=== PATIENT | female | born 1980 | race Caucasian/White ===

== ENCOUNTER 2018-10-28 10:33 | Emergency (ER) | payer OTHER ==
[2018-10-28 11:08] VITALS: BP 156/65; PULSE 82; RESP 18; TEMP 98.1
--- NOTE | 2018-10-28 11:35 | ED ---
General Adult HPI - General Chief complaint: Psychiatric Symptoms Stated complaint: psych eval Time Seen by Provider: 10/28/18 11:13 Source: patient, RN notes reviewed Mode of arrival: ambulatory Limitations: no limitations - History of Present Illness Initial comments: Patient is a 38-year-old female presenting to the emergency room today with a chief complaint of increased depression. Patient does admit that she's been on Effexor for 2 years. Her dose was 150 mg. Up approximately one month ago decreased the dose to 75 mg. She states she began noticing symptoms right away but they have been increasing and becoming more significant over the last few days. She states that she has had some "fleeting" thoughts of hurting herself. She gives an example of yesterday she was putting a knife away and she briefly thought about using the knife. Patient states she has no intentions of hurting herself. Patient denies any homicidal thoughts or plans. Patient denies any other complaints. Currently at [place] for rehab for alcohol. Patient denies any recent fever, chills, shortness of breath, chest pain, back pain, abdominal pain, nausea or vomiting, numbness or tingling, headaches or visual changes, or any other complaints. - Related Data Home Medications Medication Instructions Recorded Confirmed Ibuprofen [Motrin Ib] 600 mg PO Q6H PRN 10/28/18 10/28/18 Multivitamin,Therapeutic [Thera] 1 tab PO DAILY 10/28/18 10/28/18 Propranolol HCl [Inderal Xl] 80 mg PO DAILY 10/28/18 10/28/18 Venlafaxine HCl ER [Effexor Xr] 75 mg PO DAILY 10/28/18 10/28/18 Allergies Allergy/AdvReac Type Severity Reaction Status Date / Time No Known Allergies Allergy Verified 10/28/18 12:05 Review of Systems ROS Statement: Those systems with pertinent positive or pertinent negative responses have been documented in the HPI. ROS Other: All systems not noted in ROS Statement are negative. Past Medical History Past Medical History: Hypertension History of Any Multi-Drug Resistant Organisms: None Reported Past Surgical History: No Surgical Hx Reported Past Psychological History: Anxiety, Depression, Panic Disorder Smoking Status: Former smoker Past Alcohol Use History: Abuse Past Drug Use History: None Reported General Exam - General Exam Comments Initial Comments: General: The patient is awake and alert, in no distress, and does not appear acutely ill. Eye: Pupils are equal, round and reactive to light, extra-ocular movements are intact. No nystagmus. There is normal conjunctiva bilaterally. No signs of icterus. Ears, nose, mouth and throat: There are moist mucous membranes and no oral lesions. Neck: The neck is supple, there is no tenderness or JVD. Cardiovascular: There is a regular rate and rhythm. No murmur, rub or gallop is appreciated. Respiratory: Lungs are clear to auscultation, respirations are non-labored, breath sounds are equal. No wheezes, stridor, rales, or rhonchi. Musculoskeletal: Normal ROM, no tenderness. Neurological: A&O x 3. CN II-XII intact, There are no obvious motor or sensory deficits. Coordination appears grossly intact. Speech is normal. Skin: Skin is warm and dry and no rashes or lesions are noted. Psychiatric: Cooperative, appropriate mood & affect, normal judgment. Limitations: no limitations Course Vital Signs 10/28/18 11:02 Temperature 98.1 F Pulse Rate 82 Respiratory 18 Rate Blood Pressure 156/65 O2 Sat by Pulse 100 Oximetry Medical Decision Making - Medical Decision Making Patient seen here the emergency room by [facility]. patient denies any suicidal or homicidal thoughts or plans. Patient contracts for safety. Will be heading back to [place]. The recommendation the patient may be discharged home. Case discussed with the psychiatrist who recommended that she increase the dose the Effexor back to 150 mg. Patient states understanding and has in agreement with this plan. - Lab Data Lab Results 10/28/18 10/28/18 Range/Units 11:37 11:37 Urine HCG, Qual Not Detected (Not Detectd) Urine Opiates Screen Not Detected (NotDetected) Ur Oxycodone Screen Not Detected (NotDetected) Urine Methadone Screen Not Detected (NotDetected) Ur Propoxyphene Screen Not Detected (NotDetected) Ur Barbiturates Screen Not Detected (NotDetected) U Tricyclic Antidepress Not Detected (NotDetected) Ur Phencyclidine Scrn Not Detected (NotDetected) Ur Amphetamines Screen Not Detected (NotDetected) U Methamphetamines Scrn Not Detected (NotDetected) U Benzodiazepines Scrn Not Detected (NotDetected) Urine Cocaine Screen Not Detected (NotDetected) U Marijuana (THC) Screen Not Detected (NotDetected) Disposition Clinical Impression: Depression Disposition: HOME SELF-CARE Condition: Good Instructions: Depression (DC) Additional Instructions: Please use medication as discussed. Please follow-up with community mental health/family doctor in the next 2 days. Please return to emergency room if the symptoms increase or worsen or for any other concerns. Is patient prescribed a controlled substance at d/c from ED?: No Referrals: Nonstaff,Physician [Primary Care Provider] - 1-2 days Time of Disposition: 14:03
[2018-10-28 12:15] LABS: Amphetamine Screen,Urine Not Detected (NotDetected); Barbiturate Screen,Urine Not Detected (NotDetected); Benzodiazepines Screen,Urine Not Detected (NotDetected); Cocaine Screen,Urine Not Detected (NotDetected); Methadone Screen, Urine Not Detected (NotDetected); Opiate Screen,Urine Not Detected (NotDetected); Oxycodone Screen, Urine Not Detected (NotDetected); Phencyclidine Screen,Urine Not Detected (NotDetected); Tricyclic Antidepressant,Urine Not Detected (NotDetected); Urn Cannabinoid Scrn Not Detected (NotDetected)
== END 2018-10-28 14:34 | disposition home or self-care (01) ==
LOC: EC 10:33
DX: F32.9 Major depressive disorder, single episode, unspecified (principal); R45.851 Suicidal ideations; I10 Essential (primary) hypertension; F41.0 Panic disorder [episodic paroxysmal anxiety]; Z87.891 Personal history of nicotine dependence; Z79.899 Other long term (current) drug therapy
CPT/HCPCS: 80306; 81025; 82075; 99285

== ENCOUNTER 2019-10-15 06:40 | Emergency (ER) | payer OTHER ==
[2019-10-15 06:47] VITALS: BP 144/89; PULSE 106; RESP 19; TEMP 99.3
--- NOTE | 2019-10-15 07:04 | ED ---
General Adult HPI - General Chief complaint: Upper Respiratory Infection Stated complaint: chest congestion Time Seen by Provider: 10/15/19 06:56 Source: patient, RN notes reviewed, old records reviewed Mode of arrival: ambulatory Limitations: no limitations - History of Present Illness Initial comments: This is a 39-year-old female presents emergency room today with complaint of cough and congestion and is to call her throat. Symptoms for a week. Patient states that she's had no specific fevers or chills. She is a smoker. Patient states that she is taking [id number] cough suppressant medications with no relief. - Related Data Home Medications Medication Instructions Recorded Confirmed Ibuprofen [Motrin Ib] 600 mg PO Q6H PRN 10/28/18 10/28/18 Multivitamin,Therapeutic [Thera] 1 tab PO DAILY 10/28/18 10/28/18 Propranolol HCl [Inderal Xl] 80 mg PO DAILY 10/28/18 10/28/18 Venlafaxine HCl ER [Effexor Xr] 75 mg PO DAILY 10/28/18 10/28/18 Previous Rx's Medication Instructions Recorded Azithromycin [Zithromax Z-pack] 250 mg PO DIRECTED #6 tab 10/15/19 Benzonatate [Tessalon Perles] 100 mg PO TID PRN #20 capsule 10/15/19 methylPREDNISolone Dose Pack 4 mg PO DIRECTED #21 package 10/15/19 [Medrol Dose Pack] Allergies Allergy/AdvReac Type Severity Reaction Status Date / Time No Known Allergies Allergy Verified 10/15/19 06:46 Review of Systems ROS Statement: Those systems with pertinent positive or pertinent negative responses have been documented in the HPI. ROS Other: All systems not noted in ROS Statement are negative. Past Medical History Past Medical History: Hypertension History of Any Multi-Drug Resistant Organisms: None Reported Past Surgical History: No Surgical Hx Reported Past Psychological History: Anxiety, Depression, Panic Disorder Smoking Status: Current every day smoker Past Alcohol Use History: Abuse Past Drug Use History: None Reported General Exam - General Exam Comments Initial Comments: 39-year-old female. Alert and oriented. No distress. Limitations: no limitations General appearance: alert, in no apparent distress Head exam: Present: atraumatic, normocephalic, normal inspection Eye exam: Present: normal appearance, PERRL, EOMI. Absent: scleral icterus, conjunctival injection, periorbital swelling ENT exam: Present: normal exam, mucous membranes moist Neck exam: Present: normal inspection. Absent: tenderness, meningismus, lymphadenopathy Respiratory exam: Present: normal lung sounds bilaterally. Absent: respiratory distress, wheezes, rales, rhonchi, stridor Cardiovascular Exam: Present: regular rate, normal rhythm, normal heart sounds. Absent: systolic murmur, diastolic murmur, rubs, gallop, clicks GI/Abdominal exam: Present: soft, normal bowel sounds. Absent: distended, tenderness, guarding, rebound, rigid Extremities exam: Present: normal inspection, full ROM, normal capillary refill. Absent: tenderness, pedal edema, joint swelling, calf tenderness Back exam: Present: normal inspection Neurological exam: Present: alert, oriented X3, CN II-XII intact Psychiatric exam: Present: normal affect, normal mood Course Vital Signs 10/15/19 06:44 Temperature 99.3 F Pulse Rate 106 H Respiratory 19 Rate Blood Pressure 144/89 O2 Sat by Pulse 99 Oximetry Medical Decision Making - Medical Decision Making This patient's a 39-year-old female, she presents emergency today for upper respiratory congestion 1 week. Reports that she's been having a slight productive cough. Patient denies any specific fevers or chills. At this time patient's lungs are clear. She does have a harsh sounding cough. At this time Patient chest x-rays negative for any acute process. Discussed likely dealing with bronchitis. Discussed the Patient has any worsening symptoms she can return or follow-up with primary care doctor. Discussed treatment with steroid. I discussed the importance of smoking cessation for greater than 5 minutes. - Radiology Data Radiology results: report reviewed Chest x-ray is clear. No active cardio primary disease. Disposition Clinical Impression: Bronchitis Disposition: HOME SELF-CARE Condition: Good Instructions (If sedation given, give patient instructions): Acute Bronchitis (ED) Additional Instructions: Patient advised to continue use cough medication as prescribed. Take medications as discussed. A follow-up with a primary care doctor symptoms continue to persist. Return to emergency department if any alarming signs or symptoms occur. Prescriptions: methylPREDNISolone Dose Pack [Medrol Dose Pack] 4 mg PO DIRECTED #21 package Benzonatate [Tessalon Perles] 100 mg PO TID PRN #20 capsule PRN Reason: Cough Azithromycin [Zithromax Z-pack] 250 mg PO DIRECTED #6 tab Is patient prescribed a controlled substance at d/c from ED?: No Referrals: Aisha Juarez FNPBC [Primary Care Provider] - 1-2 days Time of Disposition: 07:30
--- NOTE | 2019-10-15 07:21 | XR ---
EXAMINATION TYPE: XR chest 2V DATE OF EXAM: 10/15/2019 HISTORY: cough. REFERENCE: NONE. FINDINGS: The lungs are clear. Pleural spaces are clear. Heart is not enlarged. IMPRESSION: NO ACTIVE PULMONARY DISEASE.
== END 2019-10-15 07:43 | disposition home or self-care (01) ==
LOC: EC 06:40
DX: J40 Bronchitis, not specified as acute or chronic (principal); I10 Essential (primary) hypertension; F41.0 Panic disorder [episodic paroxysmal anxiety]; F32.9 Major depressive disorder, single episode, unspecified; F17.200 Nicotine dependence, unspecified, uncomplicated; Z79.899 Other long term (current) drug therapy
CPT/HCPCS: 71046; 99284

== ENCOUNTER 2020-10-22 17:58 | Inpatient (IN) | payer OTHER ==
[2020-10-22] MEDS ORDERED: SODIUM CHLORIDE 0.9% 1,000 ML IV STA ×2 (19:05→20:53)
[2020-10-22] MEDS ORDERED: HYDROmorphone 0.5 MG/0.5 ML SYRINGE IVP STA (19:05)
[2020-10-22] MEDS: ONDANSETRON 4 MG/2 ML VIAL IVP STA (19:21)
--- NOTE | 2020-10-22 19:26 | ED ---
General Adult HPI <Raulito Swenson - Last Filed: 10/22/20 21:10> - General Source: patient, RN notes reviewed Mode of arrival: ambulatory Limitations: no limitations <Matt Live - Last Filed: 10/22/20 21:23> - General Chief complaint: Abdominal Pain Stated complaint: N/V/D, abd pain Time Seen by Provider: 10/22/20 18:33 - History of Present Illness Initial comments: 40-year-old female with a past medical history of hypertension presents to the emergency room for a chief complaint of abdominal pain. Patient states she woke up this morning and had nausea vomiting diarrhea. She reports she thought she had a stomach bug but her pain has worsened through the day. States her abdomen is painful. Patient states it is worse in the left lower quadrant. Denies fevers or chills.Patient has no other complaints at this time including shortness of breath, chest pain, headache, or visual changes. (Matt Live) - Related Data Home Medications Medication Instructions Recorded Confirmed Ibuprofen [Motrin Ib] 400 mg PO Q6H PRN 10/28/18 10/22/20 Venlafaxine HCl [Effexor XR] 150 mg PO HS 10/22/20 10/22/20 cloNIDine HCL [Catapres] 0.1 mg PO BID PRN 10/22/20 10/22/20 Allergies Allergy/AdvReac Type Severity Reaction Status Date / Time No Known Allergies Allergy Verified 10/22/20 19:58 Review of Systems ROS Other: All systems not noted in ROS Statement are negative. <Raulito Swenson - Last Filed: 10/22/20 21:10> ROS Other: All systems not noted in ROS Statement are negative. <Matt Live - Last Filed: 10/22/20 21:23> ROS Statement: Those systems with pertinent positive or pertinent negative responses have been documented in the HPI. Past Medical History Past Medical History: Hypertension History of Any Multi-Drug Resistant Organisms: None Reported Past Surgical History: No Surgical Hx Reported Past Psychological History: Anxiety, Depression, Panic Disorder Smoking Status: Current every day smoker Past Alcohol Use History: None Reported, Abuse Past Drug Use History: None Reported <Matt Live - Last Filed: 10/22/20 21:23> General Exam Limitations: no limitations General appearance: alert, in no apparent distress Head exam: Present: atraumatic, normocephalic, normal inspection Eye exam: Present: normal appearance ENT exam: Present: normal exam, mucous membranes moist Neck exam: Present: normal inspection, full ROM. Absent: tenderness, meningismus, lymphadenopathy Respiratory exam: Present: normal lung sounds bilaterally. Absent: respiratory distress, wheezes, rales, rhonchi, stridor Cardiovascular Exam: Present: regular rate, normal rhythm, normal heart sounds. Absent: systolic murmur, diastolic murmur, rubs, gallop, clicks GI/Abdominal exam: Present: soft, tenderness (Generalized tenderness worse in the left lower quadrant.), normal bowel sounds. Absent: distended, guarding, rebound, rigid Neurological exam: Present: alert <Matt Live P - Last Filed: 10/22/20 21:23> Course Vital Signs 10/22/20 10/22/20 18:21 21:15 Temperature 97.8 F 101.1 F H Pulse Rate 86 96 Respiratory 22 18 Rate Blood Pressure 152/88 170/100 O2 Sat by Pulse 100 99 Oximetry Medical Decision Making - Lab Data Result diagrams: 10/22/20 19:27 10/22/20 19:27 <Raulito Swenson - Last Filed: 10/22/20 21:10> - Lab Data Result diagrams: 10/22/20 19:27 10/22/20 19:27 <Matt Live - Last Filed: 10/22/20 21:23> - Medical Decision Making Patient reexamined and reevaluated by myself, Dr. Swenson. Patient is resting comfortably in bed over does have moderate tenderness on exam. CT report reviewed. Patient updated. Case discussed with Dr. Argueta, who will admit covering for surgical call and does request IV antibiotics. I do agree with PA findings. This includes diagnostic interpretation and treatment plan. (Raulito Swenson) Vitals stable. Patient does have generalized lower abdominal tenderness worse in the left lower quadrant. Initially she was very uncomfortable but has had improvement in pain after IV Dilaudid. At 2042 CT report did reveal a ruptured appendix. Patient was started on IV antibiotics and was given 30 mL/kg of normal saline based on ideal body weight. Dr. Swenson spoke with Dr. Argueta who does accept this admission. No surgery planned for tonight. However patient will be kept nothing by mouth. On antiemetics and analgesics. (Matt Live) - Lab Data Lab Results 10/22/20 10/22/20 10/22/20 Range/Units 19:27 19:27 19:27 WBC 15.1 H (3.8-10.6) k/uL RBC 4.82 (3.80-5.40) m/uL Hgb 11.4 (11.4-16.0) gm/dL Hct 34.6 (34.0-46.0) % MCV 71.8 L (80.0-100.0) fL MCH 23.5 L (25.0-35.0) pg MCHC 32.8 (31.0-37.0) g/dL RDW 16.6 H (11.5-15.5) % Plt Count 456 H (150-450) k/uL MPV 7.4 Neutrophils % 90 % Lymphocytes % 4 % Monocytes % 5 % Eosinophils % 0 % Basophils % 0 % Neutrophils # 13.5 H (1.3-7.7) k/uL Lymphocytes # 0.7 L (1.0-4.8) k/uL Monocytes # 0.7 (0-1.0) k/uL Eosinophils # 0.1 (0-0.7) k/uL Basophils # 0.0 (0-0.2) k/uL Hypochromasia Slight Anisocytosis Slight Microcytosis Moderate Sodium 136 L (137-145) mmol/L Potassium 4.1 (3.5-5.1) mmol/L Chloride 100 (98-107) mmol/L Carbon Dioxide 24 (22-30) mmol/L Anion Gap 12 mmol/L BUN 12 (7-17) mg/dL Creatinine 0.60 (0.52-1.04) mg/dL Est GFR (CKD-EPI)AfAm >90 (>60 ml/min/1.73 sqM) Est GFR (CKD-EPI)NonAf >90 (>60 ml/min/1.73 sqM) Glucose 107 H (74-99) mg/dL Plasma Lactic Acid Cem 2.7 H* (0.7-2.0) mmol/L Calcium 10.3 H (8.4-10.2) mg/dL Total Bilirubin 0.6 (0.2-1.3) mg/dL AST 32 (14-36) U/L ALT 37 H (4-34) U/L Alkaline Phosphatase 157 H (38-126) U/L Total Protein 9.0 H (6.3-8.2) g/dL Albumin 5.4 H (3.5-5.0) g/dL Amylase 46 (30-110) U/L Lipase 59 (23-300) U/L HCG, Qual Coronavirus (PCR) (Not Detectd) 10/22/20 10/22/20 Range/Units 19:27 20:02 WBC (3.8-10.6) k/uL RBC (3.80-5.40) m/uL Hgb (11.4-16.0) gm/dL Hct (34.0-46.0) % MCV (80.0-100.0) fL MCH (25.0-35.0) pg MCHC (31.0-37.0) g/dL RDW (11.5-15.5) % Plt Count (150-450) k/uL MPV Neutrophils % % Lymphocytes % % Monocytes % % Eosinophils % % Basophils % % Neutrophils # (1.3-7.7) k/uL Lymphocytes # (1.0-4.8) k/uL Monocytes # (0-1.0) k/uL Eosinophils # (0-0.7) k/uL Basophils # (0-0.2) k/uL Hypochromasia Anisocytosis Microcytosis Sodium (137-145) mmol/L Potassium (3.5-5.1) mmol/L Chloride (98-107) mmol/L Carbon Dioxide (22-30) mmol/L Anion Gap mmol/L BUN (7-17) mg/dL Creatinine (0.52-1.04) mg/dL Est GFR (CKD-EPI)AfAm (>60 ml/min/1.73 sqM) Est GFR (CKD-EPI)NonAf (>60 ml/min/1.73 sqM) Glucose (74-99) mg/dL Plasma Lactic Acid Cem (0.7-2.0) mmol/L Calcium (8.4-10.2) mg/dL Total Bilirubin (0.2-1.3) mg/dL AST (14-36) U/L ALT (4-34) U/L Alkaline Phosphatase (38-126) U/L Total Protein (6.3-8.2) g/dL Albumin (3.5-5.0) g/dL Amylase (30-110) U/L Lipase (23-300) U/L HCG, Qual Not Detected Coronavirus (PCR) Not Detected (Not Detectd) Disposition <Raulito Swenson - Last Filed: 10/22/20 21:10> Is patient prescribed a controlled substance at d/c from ED?: No Time of Disposition: 21:23 <Matt Live - Last Filed: 10/22/20 21:23> Clinical Impression: Ruptured appendicitis Disposition: ADMITTED IP TO THIS HOSP Referrals: Kelsie Matos MD [Primary Care Provider] - 1-2 days
[2020-10-22 19:54] LABS: ALT 37 U/L (4-34); AST 32 U/L (14-36); African American GFR (CKD) >90 (>60 ml/min/1.73 sqM); Albumin 5.4 g/dL (3.5-5.0); Alkaline Phosphatase 157 U/L (38-126); Amylase 46 U/L (30-110); Anion Gap 12 mmol/L; Blood Urea Nitrogen 12 mg/dL (7-17); Calcium 10.3 mg/dL (8.4-10.2); Carbon Dioxide 24 mmol/L (22-30); Chloride 100 mmol/L (98-107); Glucose 107 mg/dL (74-99); Lipase 59 U/L (23-300); Non-African American GFR(CKD) >90 (>60 ml/min/1.73 sqM); Potassium 4.1 mmol/L (3.5-5.1); Sodium 136 mmol/L (137-145); Total Bilirubin 0.6 mg/dL (0.2-1.3)
[2020-10-22 19:56] LABS: Anisocytosis Slight; Basophils % (A) 0 %; Eosinophils # (A) 0.1 k/uL (0-0.7); Eosinophils % (A) 0 %; HCT 34.6 % (34.0-46.0); HGB 11.4 gm/dL (11.4-16.0); Hypochromasia Slight; Lymphocytes # (A) 0.7 k/uL (1.0-4.8); Lymphocytes % (A) 4 %; MCH 23.5 pg (25.0-35.0); MCHC 32.8 g/dL (31.0-37.0); MCV 71.8 fL (80.0-100.0); Mean Platelet Volume 7.4; Microcytosis Moderate; Monocytes # (A) 0.7 k/uL (0-1.0); Monocytes % (A) 5 %; Neutrophils # (A) 13.5 k/uL (1.3-7.7); Neutrophils % (A) 90 %; Platelet Count 456 k/uL (150-450); RBC 4.82 m/uL (3.80-5.40); RDW 16.6 % (11.5-15.5); WBC 15.1 k/uL (3.8-10.6)
[2020-10-22] MEDS ORDERED: HYDROmorphone 1 MG/ML 1 ML SYRINGE IVP STA (20:02)
--- NOTE | 2020-10-22 20:49 | CT ---
EXAMINATION TYPE: CT abdomen pelvis w con DATE OF EXAM: 10/22/2020 COMPARISON: None HISTORY: Right lower quadrant abdominal pain and vomiting. CT DLP: 1298.3 mGycm Automated exposure control for dose reduction was used. CONTRAST: Performed with IV Contrast, patient injected with 100ml mL of Isovue 300. The lung bases are clear. There is no pleural effusion. Heart size is normal. There is no pericardial effusion. Liver spleen stomach pancreas appear normal. Bile ducts are not dilated. There is rounded low-density area in the posterior gallbladder consistent with a 2 cm cholesterol stone. There is no adrenal mass. Kidneys show satisfactory contrast opacification. There is no hydronephrosi s. The ureters are not dilated. There is no retroperitoneal adenopathy. There is small amount of free fluid in the cul-de-sac. Bladder distends smoothly. Uterus is anteverted. There is degenerative disc narrowing at L4-5. There is small posterior disc herniation at L4-5. There is no lumbar compression fracture. Bony pelvis is intact. There is some fat stranding in the pelvis on the right side and apparent dilated fluid-filled appendi x that measures 1.5 cm in diameter. IMPRESSION: Mild free fluid in the cul-de-sac. Thickened appendix with small appendicolith and surrounding fat st randing. There is probably a ruptured appendicitis causing the free fluid.
[2020-10-22] MEDS ORDERED: PIPERACILLIN-TAZOBACTAM 3.375 GM in SODIUM CHLORIDE 0.9% 100 ML IVPB STA (20:53)
[2020-10-22] MEDS ORDERED: SODIUM CHLORIDE 0.9% 500 ML 500 ML IV STA (20:56)
[2020-10-22] MEDS ORDERED: ACETAMINOPHEN TAB 500 MG TAB PO STA (21:17)
[2020-10-22] MEDS ORDERED: NALOXONE 0.4 MG/ML 1 ML VIAL IV PRN (21:18)
[2020-10-22 21:36] LABS: Appearance,Urine Clear (Clear); Bilirubin,Urine Negative (Negative); Blood,Urine Negative (Negative); Color,Urine Light Yellow; Glucose,Urine (UA) Negative (Negative); Ketones,Urine 2+ (Negative); Leukocyte Esterase,Urine Negative (Negative); Nitrite,Urine Negative (Negative); PH, Urine 7.5 (5.0-8.0); Protein,Urine Negative (Negative); Urobilinogen,Urine <2.0 mg/dL (<2.0)
[2020-10-22] MEDS: MORPHINE SULFATE 4 MG/ML SYRINGE IV PRN (21:45)
[2020-10-22] MEDS: ONDANSETRON 4 MG/2 ML VIAL IVP PRN (21:51)
[2020-10-22] MEDS: HYDROmorphone 0.5 MG/0.5 ML SYRINGE IVP PRN (23:25)
[2020-10-22] MEDS: SODIUM CHLORIDE 0.9% 1,000 ML IV SCH (23:39)
[2020-10-23] MEDS: MORPHINE SULFATE 4 MG/ML SYRINGE IV PRN ×3 (01:40→17:50)
[2020-10-23] MEDS: HYDROmorphone 0.5 MG/0.5 ML SYRINGE IVP PRN ×4 (03:22→21:11)
[2020-10-23] MEDS: ONDANSETRON 4 MG/2 ML VIAL IVP PRN (05:47)
[2020-10-23] MEDS: PIPERACILLIN-TAZOBACTAM 3.375 GM in SODIUM CHLORIDE 0.9% 100 ML IVPB SCH ×3 (06:27→22:07)
[2020-10-23] MEDS: SODIUM CHLORIDE 0.9% 1,000 ML IV SCH ×2 (06:27→19:53)
[2020-10-23] MEDS ORDERED: SODIUM CHLORIDE 0.9% 1,000 ML IV ONE (08:10)
[2020-10-23] MEDS ORDERED: IV FLUID CONTINUATION 1,000 ML IV ONE (08:32)
[2020-10-23] MEDS: ONDANSETRON 4 MG/2 ML VIAL IVP STA (08:38)
[2020-10-23] MEDS ORDERED: DEXAMETHASONE SOD PHOSPHATE 4 MG/ML 1 ML VIAL IVP ONE (08:39)
[2020-10-23] MEDS ORDERED: MIDAZOLAM 2 MG/2 ML VIAL IVP ONE (08:56)
[2020-10-23] MEDS ORDERED: SCOPOLAMINE 1.5MG/72HR PATCH TRANSDERM ONE (08:57)
[2020-10-23] MEDS ORDERED: HEPARIN SODIUM,PORCINE 5,000 UNIT/ML 1 ML VIAL SQ ONE (09:08)
--- NOTE | 2020-10-23 09:14 | P.GSHP ---
History of Present Illness H&P Date: 10/23/20 Chief Complaint: Right lower quadrant pain This is a 40-year-old female who had a 24-hour history of right lower quadrant pain. Patient assented to the emergency room and was worked up. She is found evidence of acute appendicitis Past Medical History Past Medical History: Hypertension History of Any Multi-Drug Resistant Organisms: None Reported Past Surgical History: No Surgical Hx Reported Past Anesthesia/Blood Transfusion Reactions: No Reported Reaction Past Psychological History: Anxiety, Depression, Panic Disorder Smoking Status: Current every day smoker Past Alcohol Use History: None Reported Past Drug Use History: None Reported - Past Family History Mother Family Medical History: Hypertension Father Family Medical History: Coronary Artery Disease (CAD) Medications and Allergies Home Medications Medication Instructions Recorded Confirmed Type Ibuprofen [Motrin Ib] 400 mg PO Q6H PRN 10/28/18 10/22/20 History Venlafaxine HCl [Effexor XR] 150 mg PO HS 10/22/20 10/22/20 History cloNIDine HCL [Catapres] 0.1 mg PO BID PRN 10/22/20 10/22/20 History Allergies Allergy/AdvReac Type Severity Reaction Status Date / Time No Known Allergies Allergy Verified 10/22/20 19:58 Surgical - Exam Vital Signs Temp Pulse Resp BP Pulse Ox 97.8 F 86 22 152/88 100 10/22/20 18:21 10/22/20 18:21 10/22/20 18:21 10/22/20 18:21 10/22/20 18:21 - General well developed, well nourished, no distress - Eyes PERRL - ENT normal pinna - Neck no masses - Respiratory normal expansion - Cardiovascular Rhythm: regular - Abdomen Tender right lower quadrant Abdomen: soft Results - Labs 10/22/20 19:27 10/22/20 19:27 Abnormal Lab Results - Last 24 Hours (Table) 10/22/20 10/22/20 10/22/20 Range/Units 19:27 19:27 19:27 WBC 15.1 H (3.8-10.6) k/uL MCV 71.8 L (80.0-100.0) fL MCH 23.5 L (25.0-35.0) pg RDW 16.6 H (11.5-15.5) % Plt Count 456 H (150-450) k/uL Neutrophils # 13.5 H (1.3-7.7) k/uL Lymphocytes # 0.7 L (1.0-4.8) k/uL Sodium 136 L (137-145) mmol/L Glucose 107 H (74-99) mg/dL Plasma Lactic Acid Cem 2.7 H* (0.7-2.0) mmol/L Calcium 10.3 H (8.4-10.2) mg/dL ALT 37 H (4-34) U/L Alkaline Phosphatase 157 H (38-126) U/L Total Protein 9.0 H (6.3-8.2) g/dL Albumin 5.4 H (3.5-5.0) g/dL Ur Specific [place] (1.001-1.035) Urine Ketones (Negative) 10/22/20 Range/Units 21:23 WBC (3.8-10.6) k/uL MCV (80.0-100.0) fL MCH (25.0-35.0) pg RDW (11.5-15.5) % Plt Count (150-450) k/uL Neutrophils # (1.3-7.7) k/uL Lymphocytes # (1.0-4.8) k/uL Sodium (137-145) mmol/L Glucose (74-99) mg/dL Plasma Lactic Acid Cem (0.7-2.0) mmol/L Calcium (8.4-10.2) mg/dL ALT (4-34) U/L Alkaline Phosphatase (38-126) U/L Total Protein (6.3-8.2) g/dL Albumin (3.5-5.0) g/dL Ur Specific [place] 1.050 H (1.001-1.035) Urine Ketones 2+ H (Negative) Diabetes panel 10/22/20 Range/Units 19:27 Sodium 136 L (137-145) mmol/L Potassium 4.1 (3.5-5.1) mmol/L Chloride 100 (98-107) mmol/L Carbon Dioxide 24 (22-30) mmol/L BUN 12 (7-17) mg/dL Creatinine 0.60 (0.52-1.04) mg/dL Glucose 107 H (74-99) mg/dL Calcium 10.3 H (8.4-10.2) mg/dL AST 32 (14-36) U/L ALT 37 H (4-34) U/L Alkaline Phosphatase 157 H (38-126) U/L Total Protein 9.0 H (6.3-8.2) g/dL Albumin 5.4 H (3.5-5.0) g/dL Calcium panel 10/22/20 Range/Units 19:27 Calcium 10.3 H (8.4-10.2) mg/dL Albumin 5.4 H (3.5-5.0) g/dL Pituitary panel 10/22/20 Range/Units 19:27 Sodium 136 L (137-145) mmol/L Potassium 4.1 (3.5-5.1) mmol/L Chloride 100 (98-107) mmol/L Carbon Dioxide 24 (22-30) mmol/L BUN 12 (7-17) mg/dL Creatinine 0.60 (0.52-1.04) mg/dL Glucose 107 H (74-99) mg/dL Calcium 10.3 H (8.4-10.2) mg/dL Adrenal panel 10/22/20 Range/Units 19:27 Sodium 136 L (137-145) mmol/L Potassium 4.1 (3.5-5.1) mmol/L Chloride 100 (98-107) mmol/L Carbon Dioxide 24 (22-30) mmol/L BUN 12 (7-17) mg/dL Creatinine 0.60 (0.52-1.04) mg/dL Glucose 107 H (74-99) mg/dL Calcium 10.3 H (8.4-10.2) mg/dL Total Bilirubin 0.6 (0.2-1.3) mg/dL AST 32 (14-36) U/L ALT 37 H (4-34) U/L Alkaline Phosphatase 157 H (38-126) U/L Total Protein 9.0 H (6.3-8.2) g/dL Albumin 5.4 H (3.5-5.0) g/dL Assessment and Plan Assessment: Acute appendicitis. We'll perform laparoscopic appendectomy. I discussed with patient the possible risks of open appendectomy for appendiceal rupture
[2020-10-23] MEDS ORDERED: HYDROmorphone (PF) 1 MG/ML ONE (09:28)
[2020-10-23] MEDS ORDERED: fentaNYL (PF) 50 MCG/ML 2 ML AMP ONE (09:28)
[2020-10-23] MEDS ORDERED: GLYCOPYRROLATE 0.2 MG/ML 2 ML VIAL ONE (09:28)
[2020-10-23] MEDS ORDERED: ROCURONIUM 10 MG/ML (10 ML VIAL) IV ONE (09:28)
[2020-10-23] MEDS ORDERED: ALBUTEROL HFA INHALER INHALATION ONE (09:28)
[2020-10-23] MEDS ORDERED: PROPOFOL 10 MG/ML 20 ML VIAL IV ONE (09:28)
[2020-10-23] MEDS ORDERED: NEOSTIGMINE 1 MG/ML 10 ML VIAL ONE (09:28)
[2020-10-23] MEDS ORDERED: SUCCINYLCHOLINE CHLORIDE 100 MG/5 ML SYR IV ONE (09:28)
[2020-10-23] MEDS ORDERED: LIDOCAINE 1% INJ 10MG/ML (20 ML MDV) ONE (09:28)
[2020-10-23] MEDS ORDERED: MIDAZOLAM 2 MG/2 ML VIAL ONE (09:28)
[2020-10-23] MEDS ORDERED: KETOROLAC 15 MG/ML 1 ML VIAL ONE (09:28)
[2020-10-23] MEDS ORDERED: BUPIVACAINE (PF) 0.25% 30 ML VIAL SQ ONE (09:37)
[2020-10-23] MEDS ORDERED: METOCLOPRAMIDE 5 MG/ML 2 ML VIAL IVP PRN (10:44)
[2020-10-23] MEDS ORDERED: LACTATED RINGERS 1,000 ML IV ONE (10:44)
[2020-10-23] MEDS ORDERED: NALOXONE 0.4 MG/ML 1 ML VIAL IV PRN (10:44)
--- NOTE | 2020-10-23 10:44 | P.OP ---
Date of Procedure: 10/23/20 Preoperative Diagnosis: Acute appendicitis Postoperative Diagnosis: Acute appendicitis Procedure(s) Performed: Laparoscopic appendectomy Anesthesia: MAC Surgeon: Chino Argueta Estimated Blood Loss (ml): 5 Pathology: other (Appendix) Condition: stable Disposition: PACU Description of Procedure: HaThe patient's placed on the operating table in the supine position. The patient received general anesthesia. The abdomen was prepped and draped in the usual sterile fashion. The skin was anesthetized 1% local Xylocaine at the trocar sites. Using an 11 blade the skin was incised at the umbilicus. The umbilicus was grasped with a Ayesha clamp and then a Veress needle was placed into the peritoneal cavity. Position of the Veress needle was confirmed with positive drop test. After adequate insufflation a 5 mm trocar was placed into the peritoneal cavity. The abdomen was further insufflated. And then the laparoscope was placed in the peritoneal cavity. Next a 5 mm trocar was placed in the midline suprapubic position. And then a 10 mm trocar was placed in the midline epigastric position. The patient was rotated with the right side up and in Trendelenburg. The appendix was visualized. The appendix appeared to be inflamed. The appendix was grasped and then using the Harmonic scissors the mesoappendix was divided. A PDS Endoloop was then placed around the base of the appendix. And then the appendix was divided using Harmonic scissors. The appendix was placed into an Endo Catch and brought out through the 10 mm trocar site. The abdomen was irrigated. There is no bleeding seen. The trochars withdrawn. The skin was closed interrupted 3-0 Monocryl suture. Dermabond dressing was applied. Patient was sent to recovery room in stable condition.
--- NOTE | 2020-10-23 13:04 | P.CONS ---
History of Present Illness - Reason for Consult Appendicitis. - History of Present Illness Very pleasant 40-year-old female came in with complaints of right lower quadrant abdominal pain found to have appendicitis emergently taken to patient the had appendectomy week postoperatively patient today still having some pain but feeling much better. Patient postoperatively does have bowel sounds. Patient is bit tachycardic use he usually uses clonidine for blood pressure twice a day. Review of Systems REVIEW OF SYSTEMS: CONSTITUTIONAL: No fever, no malaise, no fatigue. HEENT: No recent visual problems or hearing problems. Denied any sore throat. CARDIOVASCULAR: No chest pain, orthopnea, PND, no palpitations, no syncope. PULMONARY: No shortness of breath, no cough, no hemoptysis. GASTROINTESTINAL: No diarrhea NEUROLOGICAL: No headaches, no weakness, no numbness. HEMATOLOGICAL: Denies any bleeding or petechiae. GENITOURINARY: Denies any burning micturition, frequency, or urgency. MUSCULOSKELETAL/RHEUMATOLOGICAL: Denies any joint pain, swelling, or any muscle pain. ENDOCRINE: Denies any polyuria or polydipsia. The rest of the 14-point review of systems is negative. Past Medical History Past Medical History: Hypertension History of Any Multi-Drug Resistant Organisms: None Reported Past Surgical History: No Surgical Hx Reported Past Anesthesia/Blood Transfusion Reactions: No Reported Reaction Past Psychological History: Anxiety, Depression, Panic Disorder Smoking Status: Current every day smoker Past Alcohol Use History: None Reported Past Drug Use History: None Reported - Past Family History Mother Family Medical History: Hypertension Father Family Medical History: Coronary Artery Disease (CAD) Medications and Allergies Home Medications Medication Instructions Recorded Confirmed Type Ibuprofen [Motrin Ib] 400 mg PO Q6H PRN 10/28/18 10/22/20 History Venlafaxine HCl [Effexor XR] 150 mg PO HS 10/22/20 10/22/20 History cloNIDine HCL [Catapres] 0.1 mg PO BID PRN 10/22/20 10/22/20 History Allergies Allergy/AdvReac Type Severity Reaction Status Date / Time No Known Allergies Allergy Verified 10/22/20 19:58 Physical Exam Vitals: Vital Signs Temp Pulse Pulse Pulse Resp BP BP 10/23/20 12:28 102 H 20 121/60 10/23/20 12:13 101 H 20 109/65 10/23/20 11:58 99 16 114/61 10/23/20 11:43 100.2 F H 100 20 108/62 10/23/20 11:15 109 H 16 122/70 10/23/20 11:00 109 H 16 122/71 10/23/20 10:45 105 H 16 118/62 10/23/20 10:38 98.2 F 109 H 16 119/61 10/23/20 08:39 97.5 F L 87 18 130/72 10/23/20 08:09 99.2 F 126 H 20 129/79 10/23/20 07:58 99.2 F 126 H 20 129/79 10/23/20 06:42 107 H 10/23/20 06:21 110 H 10/23/20 05:50 98.7 F 117 H 10/23/20 04:35 99.7 F H 107 H 10/23/20 03:32 99.8 F H 105 H 18 133/73 10/22/20 23:15 98.7 F 101 H 18 145/84 10/22/20 22:46 101.6 F H 98 16 156/100 10/22/20 21:15 101.1 F H 96 18 170/100 10/22/20 18:21 97.8 F 86 22 152/88 Pulse Ox 10/23/20 12:28 97 10/23/20 12:13 94 L 10/23/20 11:58 94 L 10/23/20 11:43 88 L 10/23/20 11:15 100 10/23/20 11:00 100 10/23/20 10:45 100 10/23/20 10:38 98 10/23/20 08:39 98 10/23/20 08:09 98 10/23/20 07:58 98 10/23/20 06:42 10/23/20 06:21 10/23/20 05:50 96 10/23/20 04:35 94 L 10/23/20 03:32 94 L 10/22/20 23:15 97 10/22/20 22:46 99 10/22/20 21:15 99 10/22/20 18:21 100 Intake and Output 10/22/20 10/23/20 10/23/20 22:59 06:59 14:59 Intake Total 1000 650 Output Total 6 Balance 1000 644 Intake: IV 650 Intake, IV Titration 1000 Amount Sodium Chloride 0.9% 1, 1000 000 ml @ 125 mls/hr IV . Q8H [facility] Rx#:[id number] Output: Urine 1 Estimated Blood Loss 5 Other: Voiding Method Toilet # Voids 1 Weight 81.647 kg 95.7 kg PHYSICAL EXAMINATION: GENERAL: The patient is alert and oriented x3, not in any acute distress. Obese HEENT: Pupils are round and equally reacting to light. EOMI. No scleral icterus. No conjunctival pallor. Normocephalic, atraumatic. No pharyngeal erythema. No thyromegaly. CARDIOVASCULAR: S1 and S2 present. No murmurs, rubs, or gallops. PULMONARY: Chest is clear to auscultation, no wheezing or crackles. ABDOMEN: Soft, nontender, nondistended, normoactive bowel sounds. No palpable organomegaly. Surgical site areas appear to be clean MUSCULOSKELETAL: No joint swelling or deformity. EXTREMITIES: No cyanosis, clubbing, or pedal edema. NEUROLOGICAL: Gross neurological examination did not reveal any focal deficits. SKIN: No rashes. Results CBC & Chem 7: 10/22/20 19:27 10/22/20 19:27 Labs: Abnormal Lab Results - Last 24 Hours (Table) 10/22/20 10/22/20 10/22/20 Range/Units 19:27 19:27 19:27 WBC 15.1 H (3.8-10.6) k/uL MCV 71.8 L (80.0-100.0) fL MCH 23.5 L (25.0-35.0) pg RDW 16.6 H (11.5-15.5) % Plt Count 456 H (150-450) k/uL Neutrophils # 13.5 H (1.3-7.7) k/uL Lymphocytes # 0.7 L (1.0-4.8) k/uL Sodium 136 L (137-145) mmol/L Glucose 107 H (74-99) mg/dL Plasma Lactic Acid Cem 2.7 H* (0.7-2.0) mmol/L Calcium 10.3 H (8.4-10.2) mg/dL ALT 37 H (4-34) U/L Alkaline Phosphatase 157 H (38-126) U/L Total Protein 9.0 H (6.3-8.2) g/dL Albumin 5.4 H (3.5-5.0) g/dL Ur Specific [place] (1.001-1.035) Urine Ketones (Negative) 10/22/20 Range/Units 21:23 WBC (3.8-10.6) k/uL MCV (80.0-100.0) fL MCH (25.0-35.0) pg RDW (11.5-15.5) % Plt Count (150-450) k/uL Neutrophils # (1.3-7.7) k/uL Lymphocytes # (1.0-4.8) k/uL Sodium (137-145) mmol/L Glucose (74-99) mg/dL Plasma Lactic Acid Cem (0.7-2.0) mmol/L Calcium (8.4-10.2) mg/dL ALT (4-34) U/L Alkaline Phosphatase (38-126) U/L Total Protein (6.3-8.2) g/dL Albumin (3.5-5.0) g/dL Ur Specific [place] 1.050 H (1.001-1.035) Urine Ketones 2+ H (Negative) Assessment and Plan Plan: -Sepsis: Secondary to acute appendicitis, patient is status post appendectomy and patient is on Zosyn which will be continued. -Tachycardia which is probably reflexive, not taking clonidine patient blood pressure is normal it's expected to go down post surgery because of which patient will not be started back on Klonopin instead patient will start her on metoprolol for her to reflex tachycardia -Nicotine use: Counseling was provided -Depression: Patient will be resumed on her home medications for this
[2020-10-23] MEDS: METOPROLOL TARTRATE 25 MG TAB PO SCH ×2 (13:21→21:13)
[2020-10-23 14:56] LABS: African American GFR (CKD) >90 (>60 ml/min/1.73 sqM); Albumin 3.7 g/dL (3.5-5.0); Alkaline Phosphatase 78 U/L (38-126); Anion Gap 5 mmol/L; Blood Urea Nitrogen 7 mg/dL (7-17); Calcium 8.2 mg/dL (8.4-10.2); Carbon Dioxide 23 mmol/L (22-30); Chloride 107 mmol/L (98-107); Glucose 119 mg/dL (74-99); Non-African American GFR(CKD) >90 (>60 ml/min/1.73 sqM); Sodium 135 mmol/L (137-145); Total Bilirubin 0.7 mg/dL (0.2-1.3); Total Protein 6.5 g/dL (6.3-8.2)
[2020-10-23 14:59] LABS: ALT 25 U/L (4-34); AST 36 U/L (14-36); Potassium 4.6 mmol/L (3.5-5.1)
[2020-10-23] MEDS: HYDROcodone/APAP 5-325MG 1 EACH TAB PO PRN (15:35)
[2020-10-23] MEDS: KETOROLAC 15 MG/ML 1 ML VIAL IVP SCH ×2 (16:51→19:54)
[2020-10-23] MEDS: ACETAMINOPHEN TAB 325 MG TAB PO PRN (21:13)
[2020-10-23] MEDS: VENLAFAXINE HCL ER 150 MG CAP PO SCH (21:14)
[2020-10-23] MEDS: LACTATED RINGERS 1,000 ML IV SCH (22:10)
--- NOTE | 2020-10-23 23:38 | CONS ---
CONSULTATION DATE OF SERVICE: 10/23/2020 REASON FOR STAY: Acute gangrenous appendicitis. HISTORY OF PRESENT ILLNESS: The patient is a 40 -year-old , female presenting to the ER yesterday morning for evaluation of abdominal pain that apparently started early that morning and woke the patient with abdominal pain. The patient has been complaining of pain mostly in the and more subsequent pain mostly in the right upper quadrant area. Patient described the pain to be more of a sharp almost 10/10 and worse with movement. She did have associated nausea and vomiting, but no diarrhea. Patient seemed to worsen throughout the day and did not improve. For the same reason, the patient admitted to the hospital but patient denies having any fever or chills. With these symptoms, the patient was evaluated by the ER physician. On arrival to the ER, the patient did have a fever of 101 degrees Fahrenheit. The patient did have white count 15.1. Urine was negative. Fisher PCR was negative. The patient did have a CT of abdomen and pelvis with evidence of thickened appendix with small appendicolith and surrounding fat stranding. The patient was taken to the OR and the patient is status post laparoscopic appendectomy. However, the appendix was noticed to be significantly inflamed and possible microperforation and concern for secondary peritonitis. The patient was started on Zosyn. Infectious Disease was consulted for further management of antibiotic therapy. REVIEW OF SYSTEMS: Positive points have been mentioned in HPI. Rest of systems are negative. PAST MEDICAL HISTORY: Hypertension. PAST SURGICAL HISTORY: No major surgery. The patient also history of anxiety and depression and SOCIAL HISTORY: Current everyday smoker. Denies any drinking or drug use. FAMILY HISTORY: Father with history of coronary artery disease. Mother history of hypertension. ALLERGIES: No known drug allergies. MEDICATIONS: The patient is currently on Tylenol, Lovenox, Dilaudid, Toradol, Reglan, Lopressor, Narcan, Zofran and Zosyn. PHYSICAL EXAMINATION: Blood pressure 105/61, pulse 100 temperature 99.1. She is 93% on room air. General description is a middle-aged female lying in bed in no distress. No tachypnea or respiration of accessory muscles use. HEENT: Examination: No pallor or scleral icterus. Oral mucous membranes dry. No pharyngeal erythema or thrush. NECK: Trachea central. No thyromegaly. Lungs unlabored breathing. Clear to auscultation anteriorly. No wheeze or crackles. Heart S1, S2. Regular rate and rhythm. ABDOMEN: Soft, mildly distended and tender to touch. No guarding or rigidity. Extremities: No edema of the feet. Skin examination: No rash or mass palpable. Neurological: Patient is awake, alert, oriented times three. Mood and affect normal. LABS: Hemoglobin 11.4, white count 15.1 BUN of 7, creatinine 0.53. CT of abdomen and pelvis: Mentioned above. DIAGNOSTIC IMPRESSION AND PLAN: Patient admitted to the hospital with acute gangrenous appendicitis and possible microperforation secondary peritonitis in this patient status post appendectomy. Will need to cover for enteric gram-negative both aerobes and anaerobes to be the likely pathogen responsible for this infection. PLAN: 1. Zosyn 3.75 g q.8 hours. 2. Gentle IV fluid. 3. We will follow on clinical condition and culture to further adjust medication if needed. Thank you for this consultation. We will follow this patient along with you. MMODL / IJN: [id number] /
[2020-10-24] MEDS: MORPHINE SULFATE 4 MG/ML SYRINGE IV PRN ×4 (00:01→18:23)
[2020-10-24] MEDS: KETOROLAC 15 MG/ML 1 ML VIAL IVP SCH ×5 (00:01→23:30)
[2020-10-24] MEDS: ACETAMINOPHEN TAB 325 MG TAB PO PRN ×2 (03:05→08:47)
[2020-10-24] MEDS: HYDROmorphone 0.5 MG/0.5 ML SYRINGE IVP PRN ×4 (03:08→20:56)
[2020-10-24] MEDS: LACTATED RINGERS 1,000 ML IV SCH ×4 (05:47→23:42)
[2020-10-24] MEDS: PIPERACILLIN-TAZOBACTAM 3.375 GM in SODIUM CHLORIDE 0.9% 100 ML IVPB SCH ×3 (05:47→21:57)
[2020-10-24 06:51] LABS: Anisocytosis Slight; Basophils % (A) 0 %; Eosinophils # (A) 0.2 k/uL (0-0.7); Eosinophils % (A) 2 %; HCT 24.5 % (34.0-46.0); Hypochromasia Marked; Lymphocytes # (A) 0.7 k/uL (1.0-4.8); Lymphocytes % (A) 8 %; MCH 22.3 pg (25.0-35.0); MCHC 30.2 g/dL (31.0-37.0); MCV 73.7 fL (80.0-100.0); Mean Platelet Volume 8.3; Microcytosis Moderate; Monocytes # (A) 0.8 k/uL (0-1.0); Monocytes % (A) 10 %; Neutrophils # (A) 6.8 k/uL (1.3-7.7); Platelet Count 311 k/uL (150-450); RBC 3.33 m/uL (3.80-5.40); RDW 16.8 % (11.5-15.5); WBC 8.6 k/uL (3.8-10.6)
[2020-10-24 08:34] LABS: HGB 7.4 gm/dL (11.4-16.0)
[2020-10-24 08:41] LABS: Poikilocytosis (M) Present
[2020-10-24] MEDS: ENOXAPARIN 40 MG/0.4 ML SYRINGE SQ SCH (08:57)
[2020-10-24] MEDS: METOPROLOL TARTRATE 25 MG TAB PO SCH ×2 (08:59→21:00)
--- NOTE | 2020-10-24 11:49 | P.PN ---
Subjective Progress Note Date: 10/24/20 CHIEF COMPLAINT: Abdominal pain HISTORY OF PRESENT ILLNESS: Patient is status post laparoscopic appendectomy for acute appendicitis. She is postop day #1. Patient had pain during the night. Her pain is better controlled with current pain medication. She also had fever of 101.3 after surgery yesterday. Temp is now down to 98.7. She has on IV Zosyn. Followed by infectious disease. Currently on a clear liquid diet. WBC has normalized at 8.6 hemoglobin is 7.4. Patient denies any nausea vomiting. Denies any gas or bowel movement. PHYSICAL EXAM: VITAL SIGNS: Reviewed. GENERAL: Well-developed in no acute distress. HEENT: No sclera icterus. Extraocular movements grossly intact. Moist buccal mucosa. Head is atraumatic, normocephalic. ABDOMEN: Soft. Mildly distended incision sites clean dry and intact NEUROLOGIC: Alert and oriented. Cranial nerves II through XII grossly intact. ASSESSMENT: 1. Acute purulent appendicitis with microperforation status post laparoscopic appendectomy 2. Peritonitis secondary to appendicitis with microperforation PLAN: -Continue with antibiotics per infectious disease -Continue current pain medication -Continue IV fluids -Advance diet as tolerated -Encourage patient to ambulate and use incentive spirometer -GI prophylaxis Protonix and DVT prophylaxis Lovenox Physician Agricultural Scientist note has been reviewed by physician. Signing provider agrees with the documented findings, assessment, and plan of care. Objective - Vital Signs Vital signs: Vital Signs Temp 97.8 F 10/24/20 08:13 Pulse 83 10/24/20 08:13 Resp 16 10/24/20 08:13 BP 102/62 10/24/20 08:13 Pulse Ox 95 10/24/20 08:13 Intake & Output 10/23/20 10/24/20 10/24/20 18:59 06:59 18:59 Intake Total 1190 570 Output Total 706 425 400 Balance 484 145 -400 Intake: IV 650 Oral 540 570 Output: Urine 701 425 400 Estimated Blood Loss 5 Other: Voiding Method Toilet # Voids 1 1 - Labs CBC & Chem 7: 10/24/20 06:24 10/23/20 14:13 Labs: Abnormal Lab Results - Last 24 Hours (Table) 10/23/20 10/24/20 Range/Units 14:13 06:24 RBC 3.33 L (3.80-5.40) m/uL Hgb 7.4 L D (11.4-16.0) gm/dL Hct 24.5 L (34.0-46.0) % MCV 73.7 L (80.0-100.0) fL MCH 22.3 L (25.0-35.0) pg MCHC 30.2 L (31.0-37.0) g/dL RDW 16.8 H (11.5-15.5) % Lymphocytes # 0.7 L (1.0-4.8) k/uL Sodium 135 L (137-145) mmol/L Glucose 119 H (74-99) mg/dL Calcium 8.2 L (8.4-10.2) mg/dL Microbiology - Last 24 Hours (Table) 10/22/20 21:23 Blood Culture - Preliminary Blood No Growth after 24 hours
[2020-10-24] MEDS: HYDROcodone/APAP 5-325MG 1 EACH TAB PO PRN ×2 (12:28→21:56)
[2020-10-24] MEDS: ONDANSETRON 4 MG/2 ML VIAL IVP PRN (12:53)
[2020-10-24] MEDS: PANTOPRAZOLE 40 MG TABLET PO SCH (13:41)
--- NOTE | 2020-10-24 15:18 | P.PN ---
Subjective Progress Note Date: 10/24/20 - Reason for Consult Appendicitis. - History of Present Illness Very pleasant 40-year-old female came in with complaints of right lower quadrant abdominal pain found to have appendicitis emergently taken to patient the had appendectomy week postoperatively patient today still having some pain but feeling much better. Patient postoperatively does have bowel sounds. Patient is bit tachycardic use he usually uses clonidine for blood pressure twice a day. 10/24/2020 Patient is seen in follow-up status post appendectomy no acute overnight issues. Positive bowel sounds noted although patient reports no gas and no bowel movements at this time. Patient is voiding with no dysuria retention noted. Has been up to the bathroom slowly with no difficulties. Incentive spirometer at the bedside and instructed the patient to continue using at least 10 times every hour while awake. Patient is currently on clear liquid diet and tolerating with no reports of nausea or vomiting noted. Review of systems: Constitutional: No reports of fatigue, fever, or chills Cardiovascular: No reports of chest pain or palpitations Respiratory: No reports of shortness of breath or cough GI: No reports of nausea, vomiting, or diarrhea : No reports of dysuria or retention Neurovascular: No reports of weakness or numbness All medications have been reviewed Objective - Vital Signs Vital signs: Vital Signs Temp 97.8 F 10/24/20 08:13 Pulse 83 10/24/20 08:13 Resp 16 10/24/20 08:13 BP 102/62 10/24/20 08:13 Pulse Ox 95 10/24/20 08:13 Intake & Output 10/23/20 10/24/20 10/24/20 18:59 06:59 18:59 Intake Total 1190 570 Output Total 706 425 Balance 484 145 Intake: IV 650 Oral 540 570 Output: Urine 701 425 Estimated Blood Loss 5 Other: Voiding Method Toilet # Voids 1 - Exam GENERAL: The patient is alert and oriented x3, not in any acute distress. Obese HEENT: Pupils are round and equally reacting to light. EOMI. No scleral icterus. No conjunctival pallor. Normocephalic, atraumatic. No pharyngeal erythema. No thyromegaly. CARDIOVASCULAR: S1 and S2 present. No murmurs, rubs, or gallops. PULMONARY: Chest is clear to auscultation, no wheezing or crackles. ABDOMEN: Soft, mildly tender on palpation, nondistended, normoactive bowel sounds. No palpable organomegaly. Surgical site areas appear to be clean MUSCULOSKELETAL: No joint swelling or deformity. EXTREMITIES: No cyanosis, clubbing, or pedal edema. NEUROLOGICAL: Gross neurological examination did not reveal any focal deficits. SKIN: No rashes. - Labs CBC & Chem 7: 10/24/20 06:24 10/23/20 14:13 Labs: Abnormal Lab Results - Last 24 Hours (Table) 10/23/20 10/24/20 Range/Units 14:13 06:24 RBC 3.33 L (3.80-5.40) m/uL Hgb 7.4 L D (11.4-16.0) gm/dL Hct 24.5 L (34.0-46.0) % MCV 73.7 L (80.0-100.0) fL MCH 22.3 L (25.0-35.0) pg MCHC 30.2 L (31.0-37.0) g/dL RDW 16.8 H (11.5-15.5) % Lymphocytes # 0.7 L (1.0-4.8) k/uL Sodium 135 L (137-145) mmol/L Glucose 119 H (74-99) mg/dL Calcium 8.2 L (8.4-10.2) mg/dL Microbiology - Last 24 Hours (Table) 10/22/20 21:23 Blood Culture - Preliminary Blood No Growth after 24 hours Assessment and Plan Assessment: -Sepsis: Secondary to acute appendicitis, present on admission, patient is status post appendectomy and patient is on Zosyn which will be continued. -Tachycardia which is probably reflexive, not taking clonidine patient blood pressure is normal, patient is maintained on metoprolol 25 mg twice daily and heart rate currently in the 80s -Nicotine use: Counseling was provided -Depression: Patient will be resumed on her home medications for this -DVT prophylaxis: Subcutaneous Lovenox -GI prophylaxis: Protonix
[2020-10-24] MEDS: VENLAFAXINE HCL ER 150 MG CAP PO SCH (21:00)
--- NOTE | 2020-10-24 23:08 | PN ---
PROGRESS NOTE DATE OF SERVICE: 10/24/2020 REASON FOR FOLLOWUP: Acute gangrenous appendicitis. INTERVAL HISTORY: The patient is currently afebrile. The patient mentioned slight feeling better this morning at the time of my evaluation. The patient denies any chest pain or shortness of breath or cough. No nausea, no vomiting. Abdominal pain controlled with pain medication. PHYSICAL EXAMINATION: Blood pressure 119/72 with a pulse of 88, temperature is 97.8. She is 95% on room air. General description: The patient is a middle-aged female lying in bed in no distress. Respiratory system: Unlabored breathing. Clear to auscultation anteriorly. Heart S1, S2. Regular rate and rhythm. ABDOMEN: Soft, no tenderness. No guarding. No rigidity. LABS: Hemoglobin 7.4, white count 8.6. DIAGNOSTIC IMPRESSION/PLAN: Patient admitted to the hospital with sepsis secondary to acute gangrenous appendicitis with possible microperforation. The patient is status post laparoscopic appendectomy. Patient is covered with Zosyn to continue and monitor clinical course closely. Continue supportive care. MMODL / IJN: [id number] /
[2020-10-25] MEDS: HYDROmorphone 0.5 MG/0.5 ML SYRINGE IVP PRN ×5 (00:04→21:04)
[2020-10-25] MEDS: MORPHINE SULFATE 4 MG/ML SYRINGE IV PRN ×5 (01:35→23:42)
[2020-10-25] MEDS: HYDROcodone/APAP 5-325MG 1 EACH TAB PO PRN (02:59)
[2020-10-25] MEDS: KETOROLAC 15 MG/ML 1 ML VIAL IVP SCH ×4 (06:10→23:43)
[2020-10-25] MEDS: PANTOPRAZOLE 40 MG TABLET PO SCH (06:15)
[2020-10-25] MEDS: PIPERACILLIN-TAZOBACTAM 3.375 GM in SODIUM CHLORIDE 0.9% 100 ML IVPB SCH ×3 (06:15→21:05)
[2020-10-25] MEDS: LACTATED RINGERS 1,000 ML IV SCH ×3 (06:16→23:49)
[2020-10-25 06:41] LABS: Anisocytosis Slight; Basophils % (A) 0 %; Eosinophils # (A) 0.1 k/uL (0-0.7); Eosinophils % (A) 2 %; HCT 24.9 % (34.0-46.0); HGB 7.6 gm/dL (11.4-16.0); Hypochromasia Marked; Lymphocytes # (A) 0.4 k/uL (1.0-4.8); Lymphocytes % (A) 5 %; MCH 23.1 pg (25.0-35.0); MCHC 30.4 g/dL (31.0-37.0); MCV 76.1 fL (80.0-100.0); Mean Platelet Volume 7.3; Microcytosis Slight; Monocytes # (A) 0.3 k/uL (0-1.0); Monocytes % (A) 4 %; Neutrophils # (A) 6.8 k/uL (1.3-7.7); Neutrophils % (A) 88 %; Platelet Count 286 k/uL (150-450); RBC 3.28 m/uL (3.80-5.40); RDW 16.7 % (11.5-15.5); WBC 7.7 k/uL (3.8-10.6)
[2020-10-25 06:55] LABS: African American GFR (CKD) >90 (>60 ml/min/1.73 sqM); Anion Gap 6 mmol/L; Blood Urea Nitrogen 10 mg/dL (7-17); Calcium 8.2 mg/dL (8.4-10.2); Carbon Dioxide 25 mmol/L (22-30); Chloride 102 mmol/L (98-107); Glucose 96 mg/dL (74-99); Non-African American GFR(CKD) >90 (>60 ml/min/1.73 sqM); Potassium 3.8 mmol/L (3.5-5.1); Sodium 133 mmol/L (137-145)
[2020-10-25] MEDS: METOPROLOL TARTRATE 25 MG TAB PO SCH ×2 (09:17→19:57)
[2020-10-25] MEDS: ENOXAPARIN 40 MG/0.4 ML SYRINGE SQ SCH (09:18)
[2020-10-25] MEDS ORDERED: ALBUTEROL NEBULIZED 2.5 MG/3 ML INHALATION PRN (12:14)
--- NOTE | 2020-10-25 12:26 | CDI ---
Documentation Clarification Form Date: 10/25/2020 11:56:49 AM From: Chana Rose Admit Date: 10/22/2020 09:11:00 PM Patient Name: Nila Nuñez Visit Number: [id number] Discharge Date: ATTENTION: The Clinical Documentation Specialists (CDI) and [facility] Coding Staff appreciate your assistance in clarifying documentation. Please respond to the clarification below the line at the bottom and electronically sign. The CDI & [facility] Coding staff will review the response and follow-up if needed. Please note: Queries are made part of the Legal Health Record. If you have any questions, please contact the author of this message via ITS. Dr. Chino Argueta Sepsis: Secondary to acute appendicitis, present on admission is documented in Internal Medicine Progress Note 10/24 The History/Risk Factors: 40-year-old female presents to the ED with abdominal pain. She woke up with nausea, vomiting and diarrhea. The abdominal pain progressively worsened throughout the day. Medical History: HTN Clinical Indicators: Surgical Progress Note 10/24: Acute purulent appendicitis with microperforation status post Laparoscopic appendectomy. Peritonitis secondary to appendicitis with microperforation. WBC 10/22: Wbc 15.1 Lactic acid 10/22: 2.7 Blood cultures 10/22: No growth after 24Hrs Vitals signs on admission 10/22: B/P 170/100; HR 96; Temp 101.1 F Oral; RR 18; SpO2 99% ra Treatment: ID Progress Note 10/24: Patient admitted to the hospital with Sepsis secondary to acute gangrenous appendicitis with possible microperforation. The patient is status post Laparoscopic appendectomy. Antibiotics: 10/22: Zosyn Ivpb Q8H; IV Bolus:10/22: 0.9ns 2.5L Iv fluid bolus followed by 125cc/hr In your professional opinion, please clarify if these findings signify one of the following conditions: Sepsis POA Sepsis Ruled Out Other, please specify Unable to determine SIRS Criteria (2 or more of the following may indicate SIRS): -Temperature < 96.8F (36C) or > 101.0F (38.3C) -Heart Rate > 90 bpm -Respiratory Rate > 20 breaths/min or PaCO2 < 32 mmHg -White Blood Cell Count > 12,000 or < 4,000 cells/mm3 or > 10% bands -Lactate >2.0 mmol/L (>4.0 is equivalent to septic shock) Documented in 10/[address] Argueta Sepsis (Last Revision: January 2018) MTDD
--- NOTE | 2020-10-25 12:48 | P.PN ---
Progress Note - Text Progress Note Date: 10/25/20 The patient has some complaints of abdominal pain. She's had poor pulmonary toilet. She is only dry a 6600 mL on the incentive spirometer. On exam vital signs are stable. Abdomen soft. Status post appendicitis for acute appendicitis. Patient will continue receive IV antibiotics. We will increase her pulmonary toilet.
--- NOTE | 2020-10-25 14:58 | XR ---
EXAM: XR Chest, 1 View CLINICAL HISTORY: ITS.REASON XR Reason: low o2 TECHNIQUE: Frontal view of the chest. COMPARISON: None FINDINGS: Hardware: None. Lungs/pleura: Left pleural effusion. Patchy opacities in left greater than right mid and lower lungs. Heart/mediastinum: Borderline size of the cardiac silhouette. Soft tissues: Unremarkable. Bones: No acute fracture. Upper abdomen: Normal. IMPRESSION: Left pleural effusion. Patchy opacities in left greater than right mid and lower lungs, concerning for an infectious/inflammatory process.
--- NOTE | 2020-10-25 14:59 | P.PN ---
Subjective Very pleasant 40-year-old female came in with complaints of right lower quadrant abdominal pain found to have appendicitis emergently taken to patient the had appendectomy week postoperatively patient today still having some pain but feeling much better. Patient postoperatively does have bowel sounds. Patient is bit tachycardic use he usually uses clonidine for blood pressure twice a day. 10/24/2020 Patient is seen in follow-up status post appendectomy no acute overnight issues. Positive bowel sounds noted although patient reports no gas and no bowel movements at this time. Patient is voiding with no dysuria retention noted. Has been up to the bathroom slowly with no difficulties. Incentive spirometer at the bedside and instructed the patient to continue using at least 10 times every hour while awake. Patient is currently on clear liquid diet and tolerating with no reports of nausea or vomiting noted. 10/25/2020 Patient the abdomen is distended but passing gas now no bowel movements yet. Patient does have bowel sounds today. Patient is doing insulin spirometry but does have bibasilar crackles are pending a chest x-ray because of that reason patient is bit hyponatremic started IV fluids and await the chest x-ray. There is a drop in hemoglobin after surgery to 7.6 although stable after that. Constitutional: Denied any fatigue denied any fever. Cardio vascular: denied any chest pain, palpitations Gastrointestinal still has abdominal pain but the getting better passing gas today Pulmonary: Denied any shortness of breath cough Neurologic denied any new focal deficits All inpatient medications were reviewed and appropriate changes in these medications as dictated in the interval history and assessment and plan. Objective - Vital Signs Vital signs: Vital Signs Temp 97.9 F 10/25/20 08:22 Pulse 85 10/25/20 08:22 Resp 20 10/25/20 08:22 BP 114/75 10/25/20 08:22 Pulse Ox 95 10/25/20 08:22 Intake & Output 10/24/20 10/25/20 10/25/20 18:59 06:59 18:59 Intake Total 960 2600 Output Total 1200 900 600 Balance -240 1700 -600 Intake: Intake, IV Titration 1100 Amount Lactated Ringers 1,000 ml 1000 @ 100 mls/hr IV .Q10H [facility] Rx#:[id number] Piperacillin-Tazobactam 3 100 .375 gm In Sodium Chloride 0.9% 100 ml @ 25 mls/hr IVPB Q8H [facility] Rx#: [id number] Oral 960 1500 Output: Urine 1200 900 600 Other: Voiding Method Toilet Toilet # Voids 1 1 1 - Exam GENERAL: The patient is alert and oriented x3, not in any acute distress. Obese HEENT: Pupils are round and equally reacting to light. EOMI. No scleral icterus. No conjunctival pallor. Normocephalic, atraumatic. No pharyngeal erythema. No thyromegaly. CARDIOVASCULAR: S1 and S2 present. No murmurs, rubs, or gallops. PULMONARY: mild bibasilar crackles ABDOMEN: Soft, mildly tender on palpation, mildly distended, normoactive bowel sounds. No palpable organomegaly. Surgical site areas appear to be clean MUSCULOSKELETAL: No joint swelling or deformity. EXTREMITIES: No cyanosis, clubbing, or pedal edema. NEUROLOGICAL: Gross neurological examination did not reveal any focal deficits. - Labs CBC & Chem 7: 10/25/20 06:14 10/25/20 06:14 Labs: Abnormal Lab Results - Last 24 Hours (Table) 10/25/20 10/25/20 Range/Units 06:14 06:14 RBC 3.28 L (3.80-5.40) m/uL Hgb 7.6 L (11.4-16.0) gm/dL Hct 24.9 L (34.0-46.0) % MCV 76.1 L (80.0-100.0) fL MCH 23.1 L (25.0-35.0) pg MCHC 30.4 L (31.0-37.0) g/dL RDW 16.7 H (11.5-15.5) % Lymphocytes # 0.4 L (1.0-4.8) k/uL Sodium 133 L (137-145) mmol/L Calcium 8.2 L (8.4-10.2) mg/dL Microbiology - Last 24 Hours (Table) 10/22/20 21:23 Blood Culture - Preliminary Blood No Growth after 48 hours Assessment and Plan Plan: -Sepsis: Secondary to acute appendicitis, patient is status post appendectomy and patient is on Zosyn which will be continued.patient is passing gas at this time -Possible bibasilar atelectasis continue incentive spirometry. -Hyponatremia etiology is not clear. *The fluids will get the chest x-ray make sure patient doesn't have any pulmonary edema -Tachycardia resolved now blood pressure is better controlled continue with metoprolol -Nicotine use: Counseling was provided -Depression: Patient will be resumed on her home medications for this
[2020-10-25] MEDS ORDERED: FUROSEMIDE 10 MG/ML 2 ML VIAL IV ONE (19:00)
[2020-10-25] MEDS: VENLAFAXINE HCL ER 150 MG CAP PO SCH (19:56)
[2020-10-25] MEDS ORDERED: FUROSEMIDE 10 MG/ML 2 ML VIAL IV STA (21:31)
--- NOTE | 2020-10-25 22:07 | PN ---
PROGRESS NOTE DATE OF SERVICE: 10/25/2020 REASON FOR FOLLOWUP: Gangrenous appendicitis with concern about microperforation. INTERVAL HISTORY: The patient is currently afebrile. The patient is feeling slightly better. The patient's abdominal pain has slightly decreased in intensity. No nausea, no vomiting. No diarrhea. PHYSICAL EXAMINATION: Blood pressure 151/80 with a pulse of 115, temperature 97.8. She is 96% on 2 L nasal cannula. General description is a middle-aged female lying in bed in no distress. RESPIRATORY SYSTEM: Unlabored breathing with decreased intensity of breath sounds. No wheeze. HEART: S1, S2. Regular rate and rhythm. ABDOMEN: Soft. Mildly distended. No guarding. No rigidity. LABS: Hemoglobin 7.6, white count 7.7, BUN of 10, creatinine 0.58. Blood culture has been negative. DIAGNOSTIC IMPRESSION AND PLAN: Patient with acute gangrenous appendicitis with concern for microperforation in this patient currently covered with Zosyn; to continue. Transition to oral antibiotic on discharge. Continue with supportive care. MMODL / IJN: [id number] /
[2020-10-26] MEDS: HYDROmorphone 0.5 MG/0.5 ML SYRINGE IVP PRN ×5 (03:33→21:06)
[2020-10-26] MEDS: MORPHINE SULFATE 4 MG/ML SYRINGE IV PRN ×5 (05:27→23:31)
[2020-10-26] MEDS: PIPERACILLIN-TAZOBACTAM 3.375 GM in SODIUM CHLORIDE 0.9% 100 ML IVPB SCH ×3 (06:01→22:13)
[2020-10-26] MEDS: KETOROLAC 15 MG/ML 1 ML VIAL IVP SCH ×4 (06:15→23:31)
[2020-10-26] MEDS: PANTOPRAZOLE 40 MG TABLET PO SCH (06:18)
[2020-10-26 07:28] LABS: African American GFR (CKD) >90 (>60 ml/min/1.73 sqM); Anion Gap 9 mmol/L; Blood Urea Nitrogen 8 mg/dL (7-17); Calcium 8.6 mg/dL (8.4-10.2); Carbon Dioxide 29 mmol/L (22-30); Chloride 96 mmol/L (98-107); Glucose 101 mg/dL (74-99); Non-African American GFR(CKD) >90 (>60 ml/min/1.73 sqM); Potassium 3.4 mmol/L (3.5-5.1); Sodium 134 mmol/L (137-145)
[2020-10-26] MEDS: METOPROLOL TARTRATE 25 MG TAB PO SCH ×2 (08:28→20:57)
[2020-10-26] MEDS: ENOXAPARIN 40 MG/0.4 ML SYRINGE SQ SCH (08:28)
--- NOTE | 2020-10-26 12:30 | P.PN ---
Subjective Very pleasant 40-year-old female came in with complaints of right lower quadrant abdominal pain found to have appendicitis emergently taken to patient the had appendectomy week postoperatively patient today still having some pain but feeling much better. Patient postoperatively does have bowel sounds. Patient is bit tachycardic use he usually uses clonidine for blood pressure twice a day. 10/24/2020 Patient is seen in follow-up status post appendectomy no acute overnight issues. Positive bowel sounds noted although patient reports no gas and no bowel movements at this time. Patient is voiding with no dysuria retention noted. Has been up to the bathroom slowly with no difficulties. Incentive spirometer at the bedside and instructed the patient to continue using at least 10 times every hour while awake. Patient is currently on clear liquid diet and tolerating with no reports of nausea or vomiting noted. 10/25/2020 Patient the abdomen is distended but passing gas now no bowel movements yet. Patient does have bowel sounds today. Patient is doing insulin spirometry but does have bibasilar crackles are pending a chest x-ray because of that reason patient is bit hyponatremic started IV fluids and await the chest x-ray. There is a drop in hemoglobin after surgery to 7.6 although stable after that. 10/26/2020 Patient had a chest x-ray yesterday showed left-sided pleural effusion and infiltrate concerning for infection although patient is already on Zosyn which will be continued. Patient received Lasix twice and had urine output of around 4 L. Patient still becomes hypoxic did obtain a BNP which is a 844, obtaining echocardiogram. Constitutional: Denied any fatigue denied any fever. Cardio vascular: denied any chest pain, palpitations Gastrointestinal still has abdominal pain but the getting better passing gas today Pulmonary: Denied any shortness of breath cough Neurologic denied any new focal deficits All inpatient medications were reviewed and appropriate changes in these medications as dictated in the interval history and assessment and plan. Objective - Vital Signs Vital signs: Vital Signs Temp 97.9 F 10/26/20 08:00 Pulse 73 10/26/20 08:00 Resp 18 10/26/20 08:00 BP 129/85 10/26/20 08:00 Pulse Ox 98 10/26/20 08:00 Intake & Output 10/25/20 10/26/20 10/26/20 18:59 06:59 18:59 Intake Total 1700 Output Total 600 4425 400 Balance -600 -2725 -400 Intake: Intake, IV Titration 200 Amount Piperacillin-Tazobactam 3 200 .375 gm In Sodium Chloride 0.9% 100 ml @ 25 mls/hr IVPB Q8H [facility] Rx#: [id number] Oral 1500 Output: Urine 600 4425 400 Other: Voiding Method Toilet # Voids 1 1 1 - Exam GENERAL: The patient is alert and oriented x3, not in any acute distress. Obese HEENT: Pupils are round and equally reacting to light. EOMI. No scleral icterus. No conjunctival pallor. Normocephalic, atraumatic. No pharyngeal erythema. No thyromegaly. CARDIOVASCULAR: S1 and S2 present. No murmurs, rubs, or gallops. PULMONARY: mild bibasilar crackles ABDOMEN: Soft, mildly tender on palpation, mildly distended, normoactive bowel sounds. No palpable organomegaly. Surgical site areas appear to be clean MUSCULOSKELETAL: No joint swelling or deformity. EXTREMITIES: No cyanosis, clubbing, or pedal edema. NEUROLOGICAL: Gross neurological examination did not reveal any focal deficits. - Labs CBC & Chem 7: 10/25/20 06:14 10/26/20 06:12 Labs: Abnormal Lab Results - Last 24 Hours (Table) 10/26/20 Range/Units 06:12 Sodium 134 L (137-145) mmol/L Potassium 3.4 L (3.5-5.1) mmol/L Chloride 96 L (98-107) mmol/L Glucose 101 H (74-99) mg/dL Microbiology - Last 24 Hours (Table) 10/22/20 21:23 Blood Culture - Preliminary Blood No Growth after 72 hours Assessment and Plan Plan: -Sepsis: Secondary to acute appendicitis, patient is status post appendectomy and patient is on Zosyn which will be continued.patient is passing gas at this time -Shortness of breath: Probably secondary to either atelectasis or acute lung injury from sepsis secondary to appendicitis suspicion for pneumonia is low although patient is already on antibiotics. We will also rule out CHF -Hyponatremia probably hypervolemic hyponatremia which improved with IV Lasix -Hypokalemia secondary to Lasix which will be replaced -Tachycardia resolved now blood pressure is better controlled continue with metoprolol -Nicotine use: Counseling was provided -Depression: Patient will be resumed on her home medications for this
[2020-10-26] MEDS ORDERED: Potassium Replacement Protocol 1 EACH MISC MISCELLANE PRN (13:30)
--- NOTE | 2020-10-26 13:33 | P.DS ---
Providers Date of admission: 10/22/20 21:11 Expected date of discharge: 10/26/20 Attending physician: Chino Argueta Consults: 10/23/20 10:44 Consult Physician Routine Consulting Provider: Fidencio Richardson Consult Reason/Comments: Medical management Do you want consulting provider notified?: Yes Consult Physician Routine Consulting Provider: Caity Stahl Consult Reason/Comments: Acute appendicitis Do you want consulting provider notified?: Yes Primary care physician: Kelsie Matos - Discharge Diagnosis(es) (1) Acute appendicitis Current Visit: Yes Status: Acute Hospital Course: Patient presented with acute appendicitis. She is status post appendectomy. She was monitored for acute blood loss anemia which her hemoglobin was stable for 2 days. Prior to discharge she was tolerating diet. She is ambulating in her room. Pain was controlled. Patient clinically stable for discharge. Patient Condition at Discharge: Stable Plan - Discharge Summary Discharge Rx Participant: Yes New Discharge Prescriptions: Continue Ibuprofen [Motrin Ib] 400 mg PO Q6H PRN PRN Reason: Pain Venlafaxine HCl [Effexor XR] 150 mg PO HS cloNIDine HCL [Catapres] 0.1 mg PO BID PRN PRN Reason: Migraine Headache Discharge Medication List Ibuprofen [Motrin Ib] 400 mg PO Q6H PRN 10/28/18 [History] Venlafaxine HCl [Effexor XR] 150 mg PO HS 10/22/20 [History] cloNIDine HCL [Catapres] 0.1 mg PO BID PRN 10/22/20 [History] Follow up Appointment(s)/Referral(s): [facility] [place], [NON-STAFF] - 1-2 Days Kelsie Matos MD [Primary Care Provider] - 1-2 days Chino Argueta MD [STAFF PHYSICIAN] - 11/06/20 3:00 pm (Thursday) Patient Instructions/Handouts: *Surgery [facility] - Scopalamine Patch Instructions, Laparoscopic Appendectomy (DC) Activity/Diet/Wound Care/Special Instructions: No lifting over 10 pounds until cleared by surgeon Discharge Disposition: HOME SELF-CARE
[2020-10-26] MEDS: POTASSIUM CHLORIDE ER 20 MEQ TAB.ER PO SCH ×2 (13:43→14:51)
--- NOTE | 2020-10-26 13:44 | P.PN ---
Progress Note - Text Progress Note Date: 10/26/20 After being evaluated this morning, nurse notified me that patient was having trouble with breathing. Patient being evaluated with echo by medicine. Discharge held
[2020-10-26] MEDS: VENLAFAXINE HCL ER 150 MG CAP PO SCH (20:57)
--- NOTE | 2020-10-26 23:10 | PN ---
PROGRESS NOTE DATE OF SERVICE: 10/26/2020 REASON FOR FOLLOW UP: Gangrenous appendicitis, possible microperforation. INTERVAL HISTORY: Patient is currently afebrile. The patient is feeling better. Abdominal pain is currently controlled. Denies having any chest pain. No shortness of breath, cough. No nausea or vomiting. PHYSICAL EXAMINATION: Blood pressure 146/76, pulse of 82. Temperature is 97.2. She is 95% on room air. General description is a middle-aged female lying in bed in no distress. Respiratory system: Unlabored breathing. Clear to auscultation anteriorly. Heart S1, S2. Regular rate and rhythm. Abdomen soft. No tenderness. No guarding. No rigidity. LABS: BUN of 8, creatinine 0.59. White count normal. DIAGNOSTIC IMPRESSION AND PLAN: Patient with acute gangrenous symptoms with concern for possible microperforation, status post appendectomy. Patient is covered with Zosyn to continue, transition to oral antibiotic on discharge. Continue supportive care. MMODL / IJN: [id number] /
[2020-10-26] MEDS: LACTATED RINGERS 1,000 ML IV SCH (23:37)
[2020-10-27] MEDS: HYDROmorphone 0.5 MG/0.5 ML SYRINGE IVP PRN (01:59)
[2020-10-27] MEDS: MORPHINE SULFATE 4 MG/ML SYRINGE IV PRN ×5 (03:47→22:18)
[2020-10-27] MEDS: PANTOPRAZOLE 40 MG TABLET PO SCH (06:32)
[2020-10-27] MEDS: HYDROcodone/APAP 5-325MG 1 EACH TAB PO PRN ×4 (06:32→23:55)
[2020-10-27] MEDS: KETOROLAC 15 MG/ML 1 ML VIAL IVP SCH ×4 (06:32→23:53)
[2020-10-27] MEDS: PIPERACILLIN-TAZOBACTAM 3.375 GM in SODIUM CHLORIDE 0.9% 100 ML IVPB SCH ×3 (06:32→21:33)
[2020-10-27] MEDS: ENOXAPARIN 40 MG/0.4 ML SYRINGE SQ SCH (08:47)
[2020-10-27] MEDS: METOPROLOL TARTRATE 25 MG TAB PO SCH ×2 (08:47→20:19)
--- NOTE | 2020-10-27 09:38 | ECHOF ---
Referral Reason:hypoxia MEASUREMENTS -------- HEIGHT: 165.1 cm WEIGHT: 95.3 kg BP: 126/76 RVIDd: 3.5 cm (< 3.3) IVSd: 1.4 cm (0.6 - 1.1) LVIDd: 4.8 cm (3.9 - 5.3) LVPWd: 1.7 cm (0.6 - 1.1) IVSs: 1.8 cm LVIDs: 2.6 cm LVPWs: 1.5 cm LAESV Index (A-L): 35.80 ml/m Ao Diam: 3.3 cm (2.0 - 3.7) AV Cusp: 2.2 cm (1.5 - 2.6) MV EXCURSION: 16.721 mm (> 18.000) MV EF SLOPE: 199 mm/s (70 - 150) EPSS: 0.2 cm MV E Gene: 1.11 m/s MV DecT: 198 ms MV A Gene: 1.12 m/s MV E/A Ratio: 1.00 RAP: 5.00 mmHg RVSP: 48.46 mmHg FINDINGS -------- Sinus rhythm. This was a technically adequate study. The left ventricular size is normal. There is moderate concentric left ventricular hypertrophy. O verall left ventricular systolic function is normal with, an EF between 55 - 60 %. The diastolic fi lling pattern is normal for the age of the patient 13.85. The right ventricle is mildly enlarged. LA is moderately dilated 34-39 ml/m2 The right atrium is mildly enlarged. Interatrial and interventricular septum intact. The aortic valve is trileaflet and appears structurally normal. There is no evidence of aortic regu rgitation. There is no evidence of aortic stenosis. [id number] mitral regurgitation is present. Mild tricuspid regurgitation present. There is mild pulmonary hypertension. The right ventricular systolic pressure, as measured by Doppler, is 48.46mmHg. There is no pulmonic regurgitation present. The aortic root size is normal. IVC Not well visulized. There is a trivial pericardial effusion present. CONCLUSIONS -------- 1. The left ventricular size is normal. 2. There is moderate concentric left ventricular hypertrophy. 3. Overall left ventricular systolic function is normal with, an EF between 55 - 60 %. 4. The right ventricle is mildly enlarged. 5. LA is moderately dilated 34-39 ml/m2 6. The right atrium is mildly enlarged. 7. Yqzw-tm-zcxbrkar mitral regurgitation is present. 8. Mild tricuspid regurgitation present. 9. There is mild pulmonary hypertension. 10. The right ventricular systolic pressure, as measured by Doppler, is 48.46mmHg. 11. There is a trivial pericardial effusion present. TABLEAU ARCHITECT: Miranda Mclaughlin RDCS
[2020-10-27 10:02] LABS: Anisocytosis Slight; Basophils % (A) 0 %; Eosinophils # (A) 0.1 k/uL (0-0.7); Eosinophils % (A) 2 %; HCT 25.6 % (34.0-46.0); Hypochromasia Marked; Lymphocytes # (A) 0.5 k/uL (1.0-4.8); Lymphocytes % (A) 8 %; MCHC 31.2 g/dL (31.0-37.0); MCV 73.8 fL (80.0-100.0); Mean Platelet Volume 6.6; Microcytosis Moderate; Monocytes # (A) 0.4 k/uL (0-1.0); Monocytes % (A) 6 %; Neutrophils # (A) 5.5 k/uL (1.3-7.7); Neutrophils % (A) 82 %; Platelet Count 330 k/uL (150-450); RBC 3.47 m/uL (3.80-5.40); RDW 16.5 % (11.5-15.5); WBC 6.8 k/uL (3.8-10.6)
--- NOTE | 2020-10-27 10:09 | P.PN ---
Subjective Progress Note Date: 10/27/20 CHIEF COMPLAINT: Acute appendicitis with rupture HISTORY OF PRESENT ILLNESS: The patient is a 40-year-old female with comorbidities of morbid obesity, chronic tobacco abuse disorder presented with ruptured appendicitis. She status post laparoscopic appendectomy. Her postoperative course was complicated by exacerbation of her underlying chronic obstructive pulmonary disease due to chronic tobacco abuse. Additionally, patient was volume overloaded and received Lasix. An echo was performed earlier today. This morning, she had dyspnea for which pulmonary team was consulted. CTA was negative for pulmonary embolism. With nursing care, patient is using incentive spirometer 1200 mL volume ROS: Had bowel movements. No fevers or chills. No new chest pain. PHYSICAL EXAM: VITAL SIGNS: Reviewed CONSTITUTIONAL: Well developed and in no acute distress. EYES: Conjuctivae without sclera icterus. Extraocular movements grossly intact. HEAD, EARS, NOSE, THROAT: Moist buccal mucosa. Head is atraumatic, normocephalic. Hears conversational speech. No nasal drainage. NECK: Supple. No thyroidomegaly. RESPIRATORY: Respirations equal bilateral excursions. CARDIOVASCULAR: 2+ radial pulses. ABDOMEN: No peritonitis. Incisions intact MUSCULOSKELETAL: No gross deformity of the lower extremities noted. No clubbing. No cyanosis. SKIN: Good skin turgor. Well perfused. NEUROLOGIC: Cranial nerves II through XII grossly intact. No focal or lateralizing signs. PSYCH: Appropriate affect. Alert and oriented to person, place and time. CLINICAL LABS: Labs pending. ASSESSMENT: 1. Ruptured appendicitis. 2. Chronic tobacco abuse disorder 3. Morbid obesity PLAN: 1. Pulmonary consultation has been obtained due to presentation of exacerbation of COPD and pre-existing chronic tobacco abuse disorder. 2. Labs being obtained. 3. Results of echo for further management of clinical congestive heart failure Objective - Vital Signs Vital signs: Vital Signs Temp 97.4 F L 10/27/20 08:45 Pulse 77 10/27/20 08:45 Resp 18 10/27/20 08:45 BP 126/76 10/27/20 01:23 Pulse Ox 90 L 10/27/20 08:45 Intake & Output 10/26/20 10/27/20 10/27/20 18:59 06:59 18:59 Intake Total 1430 750 Output Total 950 1350 350 Balance 480 -600 -350 Intake: Intake, IV Titration 350 Amount Lactated Ringers 1,000 ml 250 @ 25 mls/hr IV .Q24H [facility] Rx#:[id number] Piperacillin-Tazobactam 3 100 .375 gm In Sodium Chloride 0.9% 100 ml @ 25 mls/hr IVPB Q8H [facility] Rx#: [id number] Oral 1080 750 Output: Urine 950 1350 350 Other: Voiding Method Toilet Toilet # Voids 1 3 - Labs CBC & Chem 7: 10/27/20 09:34 10/26/20 17:29 Labs: Abnormal Lab Results - Last 24 Hours (Table) 10/27/20 Range/Units 09:34 RBC 3.47 L (3.80-5.40) m/uL Hgb 8.0 L (11.4-16.0) gm/dL Hct 25.6 L (34.0-46.0) % MCV 73.8 L (80.0-100.0) fL MCH 23.0 L (25.0-35.0) pg RDW 16.5 H (11.5-15.5) % Lymphocytes # 0.5 L (1.0-4.8) k/uL Microbiology - Last 24 Hours (Table) 10/22/20 21:23 Blood Culture - Preliminary Blood No Growth after 96 hours Assessment and Plan (1) Acute appendicitis Current Visit: Yes Status: Acute Code(s): K35.80 - UNSPECIFIED ACUTE APPENDICITIS SNOMED Code(s): 75580760
[2020-10-27 10:15] LABS: ALT 31 U/L (4-34); AST 32 U/L (14-36); African American GFR (CKD) >90 (>60 ml/min/1.73 sqM); Albumin 3.1 g/dL (3.5-5.0); Alkaline Phosphatase 126 U/L (38-126); Anion Gap 7 mmol/L; Blood Urea Nitrogen 9 mg/dL (7-17); Calcium 8.6 mg/dL (8.4-10.2); Carbon Dioxide 30 mmol/L (22-30); Chloride 99 mmol/L (98-107); Glucose 109 mg/dL (74-99); Non-African American GFR(CKD) >90 (>60 ml/min/1.73 sqM); Phosphorus 2.7 mg/dL (2.5-4.5); Potassium 3.4 mmol/L (3.5-5.1); Sodium 136 mmol/L (137-145); Total Bilirubin 0.5 mg/dL (0.2-1.3); Total Protein 5.8 g/dL (6.3-8.2)
[2020-10-27] MEDS ORDERED: Potassium Replacement Protocol 1 EACH MISC MISCELLANE PRN (10:31)
[2020-10-27] MEDS ORDERED: FUROSEMIDE 10 MG/ML 4 ML VIAL IV STA (10:47)
[2020-10-27] MEDS: POTASSIUM CHLORIDE ER 20 MEQ TAB.ER PO SCH ×2 (11:05→12:08)
--- NOTE | 2020-10-27 11:31 | P.CNPUL ---
History of Present Illness Consult date: 10/27/20 Requesting physician: Janneth Gan Reason for consult: dyspnea, hypoxemia Chief complaint: Abdominal pain History of present illness: Is a very pleasant 40-year-old female patient with a known history of hypertension, anxiety/depression, chronic tobacco dependence. She presented here to the emergency room on 10/22/2020 with complaints of abdominal pain. She was found to have acute appendicitis and had undergone a laparoscopic appendectomy on 10/23/2020. She had been recovering here in the pediatric unit. She had received over 4 L of fluid resuscitation and began to develop increa sing shortness of breath and hypoxemia. Chest x-ray on 10/25/2020 revealed a left pleural effusion. Patchy opacities in the left greater than right mid and lower lungs concerning for infectious/inflammatory process. The plan was for discharge home yesterday however she was requiring oxygen at 2 L/m to maintain O2 saturations in the low 90s. We're consulted today for the same. Presently she is resting fairly comfortably in bed. Awake and alert in no acute distress. She has a dry nonproductive cough. She is afebrile. Hemodynamically stable. Only pulling approximately 1000 ML's on her incentive spirometer. White count 6.8. Hemoglobin 8.0. Sodium 136. Potassium 3.4. Creatinine 0.52. ProBNP 844. Echocardiogram reveals preserved left ventricular systolic function with ejection fraction 55-60%. Blood cultures reveal no growth. She is currently on Zosyn. She received Lasix 40 mg IVP 1 this morning. Review of Systems REVIEW OF SYSTEMS: CONSTITUTIONAL: Denies any recent significant weight loss or weight gain. EYES: Denies change in vision. EARS, NOSE, MOUTH, THROAT: Denies headaches, denies sore throat. CARDIOVASCULAR: Denies chest pain, palpitations or syncopal episodes. RESPIRATORY: Positive for shortness of breath, cough, congestion no hemoptysis. GASTROINTESTINAL: Positive for abdominal pain GENITOURINARY: Denies hematuria, denies infections. MUSKULOSKELETAL: Denies pain, denies swelling. INTEGUMENTARY: Denies rash, denies eczema. NEUROLOGICAL: Denies recent memory loss, no recent seizure activity. PSYCHIATRIC: Denies anxiety, denies depression. HEMATOLOGIC/LYMPHATIC: Denies anemia, denies enlarged lymph nodes. Past Medical History Past Medical History: Hypertension History of Any Multi-Drug Resistant Organisms: None Reported Past Surgical History: No Surgical Hx Reported Past Anesthesia/Blood Transfusion Reactions: No Reported Reaction Past Psychological History: Anxiety, Depression, Panic Disorder Smoking Status: Current every day smoker Past Alcohol Use History: None Reported Past Drug Use History: None Reported - Past Family History Mother Family Medical History: Hypertension Father Family Medical History: Coronary Artery Disease (CAD) Medications and Allergies Home Medications Medication Instructions Recorded Confirmed Type Ibuprofen [Motrin Ib] 400 mg PO Q6H PRN 10/28/18 10/22/20 History Venlafaxine HCl [Effexor XR] 150 mg PO HS 10/22/20 10/22/20 History cloNIDine HCL [Catapres] 0.1 mg PO BID PRN 10/22/20 10/22/20 History Allergies Allergy/AdvReac Type Severity Reaction Status Date / Time No Known Allergies Allergy Verified 10/22/20 19:58 Physical Exam Vitals: Vital Signs Temp Pulse Pulse Resp BP BP Pulse Ox 10/27/20 08:45 97.4 F L 77 18 138/90 90 L 10/27/20 07:58 81 93 L 10/27/20 04:51 80 22 94 L 10/27/20 04:48 81 20 88 L 10/27/20 01:23 98.4 F 81 22 126/76 93 L 10/26/20 23:47 84 94 L 10/26/20 20:50 97.2 F L 82 24 146/78 95 10/26/20 18:43 81 105 H 94 L 10/26/20 14:27 97.9 F 84 18 127/77 96 10/26/20 12:00 Pulse Ox Pulse Ox Pulse Ox 10/27/20 08:45 10/27/20 07:58 10/27/20 04:51 10/27/20 04:48 10/27/20 01:23 10/26/20 23:47 10/26/20 20:50 10/26/20 18:43 85 L 10/26/20 14:27 10/26/20 12:00 95 87 L Intake and Output 10/26/20 10/27/20 10/27/20 22:59 06:59 14:59 Intake Total 890 750 480 Output Total 300 1350 350 Balance 590 -600 130 Intake: Intake, IV Titration 350 Amount Lactated Ringers 1,000 ml 250 @ 25 mls/hr IV .Q24H [facility] Rx#:[id number] Piperacillin-Tazobactam 3 100 .375 gm In Sodium Chloride 0.9% 100 ml @ 25 mls/hr IVPB Q8H [facility] Rx#: [id number] Oral 540 750 480 Output: Urine 300 1350 350 Other: Voiding Method Toilet Toilet # Voids 1 3 125 GENERAL EXAM: Alert, very pleasant 40-year-old female patient, on 2 L nasal cannula, fairly comfortable in no apparent distress. HEAD: Normocephalic. EYES: Normal reaction of pupils, equal size. NOSE: Clear with pink turbinates. THROAT: No erythema or exudates. NECK: No masses, no JVD. CHEST: No chest wall deformity. LUNGS: Equal air entry with crackles in the bilateral posterior bases. CVS: S1 and S2 normal with no audible murmur, regular rhythm. ABDOMEN: Tender to palpation. Surgical incisions clean dry well approximated. No hepatosplenomegaly, normal bowel sounds, no guarding or rigidity. SPINE: No scoliosis or deformity SKIN: No rashes CENTRAL NERVOUS SYSTEM: No focal deficits, tone is normal in all 4 extremities. EXTREMITIES: There is no peripheral edema. No clubbing, no cyanosis. Peripheral pulses are intact. Results - Laboratory Findings CBC and BMP: 10/27/20 09:34 10/27/20 09:34 Abnormal lab findings: Abnormal Labs 10/22/20 10/22/20 10/22/20 19:27 19:27 19:27 WBC 15.1 H RBC Hgb Hct MCV 71.8 L MCH 23.5 L MCHC RDW 16.6 H Plt Count 456 H Neutrophils # 13.5 H Lymphocytes # 0.7 L Sodium 136 L Potassium Chloride Glucose 107 H Plasma Lactic Acid Cem 2.7 H* Calcium 10.3 H ALT 37 H Alkaline Phosphatase 157 H Total Protein 9.0 H Albumin 5.4 H Ur Specific [place] Urine Ketones 10/22/20 10/23/20 10/24/20 21:23 14:13 06:24 WBC RBC 3.33 L Hgb 7.4 L D Hct 24.5 L MCV 73.7 L MCH 22.3 L MCHC 30.2 L RDW 16.8 H Plt Count Neutrophils # Lymphocytes # 0.7 L Sodium 135 L Potassium Chloride Glucose 119 H Plasma Lactic Acid Cem Calcium 8.2 L ALT Alkaline Phosphatase Total Protein Albumin Ur Specific [place] 1.050 H Urine Ketones 2+ H 10/25/20 10/25/20 10/26/20 06:14 06:14 06:12 WBC RBC 3.28 L Hgb 7.6 L Hct 24.9 L MCV 76.1 L MCH 23.1 L MCHC 30.4 L RDW 16.7 H Plt Count Neutrophils # Lymphocytes # 0.4 L Sodium 133 L 134 L Potassium 3.4 L Chloride 96 L Glucose 101 H Plasma Lactic Acid Cem Calcium 8.2 L ALT Alkaline Phosphatase Total Protein Albumin Ur Specific [place] Urine Ketones 10/27/20 10/27/20 09:34 09:34 WBC RBC 3.47 L Hgb 8.0 L Hct 25.6 L MCV 73.8 L MCH 23.0 L MCHC RDW 16.5 H Plt Count Neutrophils # Lymphocytes # 0.5 L Sodium 136 L Potassium 3.4 L Chloride Glucose 109 H Plasma Lactic Acid Cem Calcium ALT Alkaline Phosphatase Total Protein 5.8 L Albumin 3.1 L Ur Specific [place] Urine Ketones - Diagnostic Findings Chest x-ray: image reviewed Assessment and Plan Assessment: 1 Acute appendicitis status post laparoscopic appendectomy 2 Fluid volume overload secondary to fluid resuscitation with increased dyspnea and hypoxemia 3 Atelectasis/infiltrates due to hypoventilation secondary to abdominal discomf ort 4 COPD suspected with ongoing tobacco dependence. 5 Chronic tobacco dependence 6 History of hypertension Plan: The patient was seen and evaluated by Dr. Barraza Previous chest x-ray reviewed, echocardiogram, labs reviewed Lasix 40 mg IVP 1 Encouraged increased use the incentive spirometer and cough and deep breathing exercises Follow-up chest x-ray in a.m. Continue Zosyn Titrate down the FiO2 as tolerated Bronchodilators scheduled versus when necessary Increase her activity as tolerated We will continue to follow and make further recommendations based on her clinical status I, the cosigning physician, performed a history & physical examination of the patient. Lungs sounds with faint crackles in the bilateral posterior bases, diminished. Maintaining good O2 saturations in the 90s on 2 L/m per nasal cannula. I discussed the assessment and plan of care with my nurse practitioner, Porsha Perez. I attest to the above consultation as dictated by her. Time with Patient: Greater than 30
--- NOTE | 2020-10-27 14:13 | P.PN ---
Subjective Very pleasant 40-year-old female came in with complaints of right lower quadrant abdominal pain found to have appendicitis emergently taken to patient the had appendectomy week postoperatively patient today still having some pain but feeling much better. Patient postoperatively does have bowel sounds. Patient is bit tachycardic use he usually uses clonidine for blood pressure twice a day. 10/24/2020 Patient is seen in follow-up status post appendectomy no acute overnight issues. Positive bowel sounds noted although patient reports no gas and no bowel movements at this time. Patient is voiding with no dysuria retention noted. Has been up to the bathroom slowly with no difficulties. Incentive spirometer at the bedside and instructed the patient to continue using at least 10 times every hour while awake. Patient is currently on clear liquid diet and tolerating with no reports of nausea or vomiting noted. 10/25/2020 Patient the abdomen is distended but passing gas now no bowel movements yet. Patient does have bowel sounds today. Patient is doing insulin spirometry but does have bibasilar crackles are pending a chest x-ray because of that reason patient is bit hyponatremic started IV fluids and await the chest x-ray. There is a drop in hemoglobin after surgery to 7.6 although stable after that. 10/26/2020 Patient had a chest x-ray yesterday showed left-sided pleural effusion and infiltrate concerning for infection although patient is already on Zosyn which will be continued. Patient received Lasix twice and had urine output of around 4 L. Patient still becomes hypoxic did obtain a BNP which is a 844, obtaining echocardiogram. 10/27/2020 Patient's echocardiogram did show concentrate left radical or hypertrophy there is no evidence of systolic dysfunction. Patient appears to have volume overload secondary to IV fluids which were discontinued will give another dose of Lasix. Constitutional: Denied any fatigue denied any fever. Cardio vascular: denied any chest pain, palpitations Gastrointestinal still has abdominal pain but the getting better passing gas today Pulmonary: Denied any shortness of breath cough Neurologic denied any new focal deficits All inpatient medications were reviewed and appropriate changes in these medications as dictated in the interval history and assessment and plan. Objective - Vital Signs Vital signs: Vital Signs Temp 97.6 F 10/27/20 11:48 Pulse 76 10/27/20 12:46 Resp 18 10/27/20 11:48 BP 140/92 10/27/20 11:48 Pulse Ox 97 10/27/20 12:46 Intake & Output 10/26/20 10/27/20 10/27/20 18:59 06:59 18:59 Intake Total 1430 750 960 Output Total 950 1350 1825 Balance 480 -600 -865 Intake: Intake, IV Titration 350 Amount Lactated Ringers 1,000 ml 250 @ 25 mls/hr IV .Q24H [facility] Rx#:[id number] Piperacillin-Tazobactam 3 100 .375 gm In Sodium Chloride 0.9% 100 ml @ 25 mls/hr IVPB Q8H [facility] Rx#: [id number] Oral 1080 750 960 Output: Urine 950 1350 1825 Other: Voiding Method Toilet Toilet # Voids 1 3 - Exam GENERAL: The patient is alert and oriented x3, not in any acute distress. Obese HEENT: Pupils are round and equally reacting to light. EOMI. No scleral icterus. No conjunctival pallor. Normocephalic, atraumatic. No pharyngeal erythema. No thyromegaly. CARDIOVASCULAR: S1 and S2 present. No murmurs, rubs, or gallops. PULMONARY: mild bibasilar crackles which improved compared to yesterday. ABDOMEN: Soft, mildly tender on palpation, mildly distended, normoactive bowel sounds. No palpable organomegaly. Surgical site areas appear to be clean MUSCULOSKELETAL: No joint swelling or deformity. EXTREMITIES: No cyanosis, clubbing, or pedal edema. NEUROLOGICAL: Gross neurological examination did not reveal any focal deficits. - Labs CBC & Chem 7: 10/27/20 09:34 10/27/20 09:34 Labs: Abnormal Lab Results - Last 24 Hours (Table) 10/27/20 10/27/20 Range/Units 09:34 09:34 RBC 3.47 L (3.80-5.40) m/uL Hgb 8.0 L (11.4-16.0) gm/dL Hct 25.6 L (34.0-46.0) % MCV 73.8 L (80.0-100.0) fL MCH 23.0 L (25.0-35.0) pg RDW 16.5 H (11.5-15.5) % Lymphocytes # 0.5 L (1.0-4.8) k/uL Sodium 136 L (137-145) mmol/L Potassium 3.4 L (3.5-5.1) mmol/L Glucose 109 H (74-99) mg/dL Total Protein 5.8 L (6.3-8.2) g/dL Albumin 3.1 L (3.5-5.0) g/dL Microbiology - Last 24 Hours (Table) 10/22/20 21:23 Blood Culture - Preliminary Blood No Growth after 96 hours Assessment and Plan Plan: -Sepsis: Secondary to acute appendicitis, patient is status post appendectomy and patient is on Zosyn which will be continued. -Shortness of breath: Probably secondary to volume overload from IV fluid resuscitation, patient doesn't have any systolic dysfunction at this time patient will be given another dose of Lasix did -Hyponatremia probably hypervolemic hyponatremia which improved with IV Lasix -Hypokalemia secondary to Lasix which will be replaced -Tachycardia resolved now blood pressure is better controlled continue with me toprolol -Nicotine use: Counseling was provided -Depression: Patient will be resumed on her home medications for this
[2020-10-27] MEDS: LACTATED RINGERS 1,000 ML IV SCH (14:51)
[2020-10-27] MEDS: IPRATROPIUM-ALBUTEROL 3 ML NEB INHALATION SCH ×2 (16:50)
[2020-10-27] MEDS: VENLAFAXINE HCL ER 150 MG CAP PO SCH (20:19)
--- NOTE | 2020-10-28 01:38 | PN ---
PROGRESS NOTE DATE OF SERVICE: 10/27/2020 REASON FOR FOLLOW UP: Gangrenous appendicitis and microperforation. INTERVAL HISTORY: The patient is currently afebrile. The patient is breathing comfortably. The patient denies having any chest pain or shortness of breath. Abdominal pain is currently controlled. No nausea, vomiting or diarrhea. PHYSICAL EXAMINATION: Blood pressure 145/85 with a pulse of 80, temperature 98.3. She is 92% on room air. General description: The patient is a middle-aged female up in the room in no distress. Respiratory system: Unlabored breathing with decreased breath sounds in the base, with no wheeze. Heart S1, S2. Regular rate and rhythm. ABDOMEN: Soft, no tenderness. LABS: Hemoglobin is 8.2. White count 6.8. BUN of 9, creatinine 0.52. Blood culture negative. DIAGNOSTIC IMPRESSION AND PLAN: Patient with acute gangrenous appendicitis with concern for microperforation. Patient is currently on Zosyn to continue while inpatient. Hopefully finish therapy with oral antibiotics. Continue supportive care. MMODL / IJN: [id number] /
[2020-10-28] MEDS: KETOROLAC 15 MG/ML 1 ML VIAL IVP SCH ×2 (06:14→12:41)
[2020-10-28] MEDS: HYDROcodone/APAP 5-325MG 1 EACH TAB PO PRN ×3 (06:15→18:27)
[2020-10-28] MEDS: PIPERACILLIN-TAZOBACTAM 3.375 GM in SODIUM CHLORIDE 0.9% 100 ML IVPB SCH ×3 (06:15→22:01)
[2020-10-28] MEDS: PANTOPRAZOLE 40 MG TABLET PO SCH (06:15)
[2020-10-28 06:58] LABS: Anisocytosis Slight; Basophils % (A) 1 %; Eosinophils # (A) 0.2 k/uL (0-0.7); Eosinophils % (A) 4 %; HCT 24.5 % (34.0-46.0); HGB 7.6 gm/dL (11.4-16.0); Hypochromasia Moderate; Lymphocytes # (A) 0.7 k/uL (1.0-4.8); Lymphocytes % (A) 11 %; MCH 22.5 pg (25.0-35.0); MCHC 31.2 g/dL (31.0-37.0); MCV 72.2 fL (80.0-100.0); Mean Platelet Volume 7.2; Microcytosis Moderate; Monocytes # (A) 0.5 k/uL (0-1.0); Monocytes % (A) 8 %; Neutrophils # (A) 4.6 k/uL (1.3-7.7); Neutrophils % (A) 74 %; Platelet Count 330 k/uL (150-450); RBC 3.39 m/uL (3.80-5.40); RDW 16.6 % (11.5-15.5); WBC 6.2 k/uL (3.8-10.6)
[2020-10-28 07:16] LABS: ALT 34 U/L (4-34); AST 32 U/L (14-36); African American GFR (CKD) >90 (>60 ml/min/1.73 sqM); Alkaline Phosphatase 128 U/L (38-126); Anion Gap 4 mmol/L; Blood Urea Nitrogen 7 mg/dL (7-17); Calcium 8.7 mg/dL (8.4-10.2); Carbon Dioxide 32 mmol/L (22-30); Chloride 100 mmol/L (98-107); Glucose 110 mg/dL (74-99); Non-African American GFR(CKD) >90 (>60 ml/min/1.73 sqM); Phosphorus 3.1 mg/dL (2.5-4.5); Potassium 3.4 mmol/L (3.5-5.1); Sodium 136 mmol/L (137-145); Total Bilirubin 0.6 mg/dL (0.2-1.3); Total Protein 5.8 g/dL (6.3-8.2)
--- NOTE | 2020-10-28 07:58 | XR ---
EXAMINATION TYPE: XR chest 1V portable DATE OF EXAM: 10/28/2020 Comparison: 10/25/2020 Clinical History: 40-year-old female Hypoxemia Findings: Heart borderline enlarged. Focal right basilar opacity. Trace left pleural effusion persists. Impression: 1. Borderline heart size. 2. Patchy right basilar opacity has increased. 3. Trace left pleural effusion persists.
[2020-10-28] MEDS ORDERED: Potassium Replacement Protocol 1 EACH MISC MISCELLANE PRN (09:03)
[2020-10-28] MEDS: ENOXAPARIN 40 MG/0.4 ML SYRINGE SQ SCH (09:11)
[2020-10-28] MEDS: METOPROLOL TARTRATE 25 MG TAB PO SCH ×2 (09:11→20:28)
[2020-10-28] MEDS: POTASSIUM CHLORIDE ER 20 MEQ TAB.ER PO SCH ×2 (09:12→10:16)
[2020-10-28] MEDS: MORPHINE SULFATE 4 MG/ML SYRINGE IV PRN ×2 (09:31→15:42)
[2020-10-28] MEDS: ONDANSETRON 4 MG/2 ML VIAL IVP PRN (09:45)
[2020-10-28] MEDS: IPRATROPIUM-ALBUTEROL 3 ML NEB INHALATION SCH ×3 (10:46→20:42)
--- NOTE | 2020-10-28 11:17 | P.PN ---
Subjective Progress Note Date: 10/28/20 CHIEF COMPLAINT: Acute appendicitis with rupture HISTORY OF PRESENT ILLNESS: The patient is a 40-year-old female with comorbidities of morbid obesity, chronic tobacco abuse disorder presented with ruptured appendicitis. She status post laparoscopic appendectomy. She is breathing better today. Dyspnea is improving. Pain is controlled. ROS: No fevers or chills. No new chest pain. PHYSICAL EXAM: VITAL SIGNS: Reviewed CONSTITUTIONAL: Well developed and in no acute distress. EYES: Conjuctivae without sclera icterus. Extraocular movements grossly intact. HEAD, EARS, NOSE, THROAT: Moist buccal mucosa. Head is atraumatic, normocephalic. Hears conversational speech. No nasal drainage. NECK: Supple. No thyroidomegaly. RESPIRATORY: Respirations equal bilateral excursions. CARDIOVASCULAR: 2+ radial pulses. ABDOMEN: No peritonitis. Incisions intact MUSCULOSKELETAL: No gross deformity of the lower extremities noted. No clubbing. No cyanosis. SKIN: Good skin turgor. Well perfused. NEUROLOGIC: Cranial nerves II through XII grossly intact. No focal or lateralizing signs. PSYCH: Appropriate affect. Alert and oriented to person, place and time. CLINICAL LABS: Labs pending. STUDIES: Chest xray report shows trace left plueral effusion ASSESSMENT: 1. Ruptured appendicitis. 2. Chronic tobacco abuse disorder 3. Morbid obesity 4. COPD exacerbation PLAN: 1. She was started on nebulizer and scheduled lasix with improvement of symptoms. 2. Continue IV antibiotics. Objective - Vital Signs Vital signs: Vital Signs Temp 98 F 10/28/20 09:00 Pulse 72 10/28/20 09:00 Resp 18 10/28/20 09:00 BP 153/88 10/28/20 09:00 Pulse Ox 91 L 10/28/20 09:00 Intake & Output 10/27/20 10/28/20 10/28/20 18:59 06:59 18:59 Intake Total 1260 1170 Output Total 2125 850 Balance -865 320 Intake: Oral 1260 1170 Output: Urine 2125 850 Other: Voiding Method Toilet Toilet - Labs CBC & Chem 7: 10/28/20 06:36 10/28/20 06:36 Labs: Abnormal Lab Results - Last 24 Hours (Table) 10/28/20 10/28/20 Range/Units 06:36 06:36 RBC 3.39 L (3.80-5.40) m/uL Hgb 7.6 L (11.4-16.0) gm/dL Hct 24.5 L (34.0-46.0) % MCV 72.2 L (80.0-100.0) fL MCH 22.5 L (25.0-35.0) pg RDW 16.6 H (11.5-15.5) % Lymphocytes # 0.7 L (1.0-4.8) k/uL Sodium 136 L (137-145) mmol/L Potassium 3.4 L (3.5-5.1) mmol/L Carbon Dioxide 32 H (22-30) mmol/L Glucose 110 H (74-99) mg/dL Alkaline Phosphatase 128 H (38-126) U/L Total Protein 5.8 L (6.3-8.2) g/dL Albumin 3.0 L (3.5-5.0) g/dL Microbiology - Last 24 Hours (Table) 10/22/20 21:23 Blood Culture - Preliminary Blood No Growth after 120 hours Assessment and Plan (1) Acute appendicitis Current Visit: Yes Status: Acute Code(s): K35.80 - UNSPECIFIED ACUTE APPENDICITIS SNOMED Code(s): 38272100
[2020-10-28] MEDS: FUROSEMIDE 10 MG/ML 4 ML VIAL IV SCH ×2 (11:26→20:31)
--- NOTE | 2020-10-28 11:41 | P.PN ---
Subjective Very pleasant 40-year-old female came in with complaints of right lower quadrant abdominal pain found to have appendicitis emergently taken to patient the had appendectomy week postoperatively patient today still having some pain but feeling much better. Patient postoperatively does have bowel sounds. Patient is bit tachycardic use he usually uses clonidine for blood pressure twice a day. 10/24/2020 Patient is seen in follow-up status post appendectomy no acute overnight issues. Positive bowel sounds noted although patient reports no gas and no bowel movements at this time. Patient is voiding with no dysuria retention noted. Has been up to the bathroom slowly with no difficulties. Incentive spirometer at the bedside and instructed the patient to continue using at least 10 times every hour while awake. Patient is currently on clear liquid diet and tolerating with no reports of nausea or vomiting noted. 10/25/2020 Patient the abdomen is distended but passing gas now no bowel movements yet. Patient does have bowel sounds today. Patient is doing insulin spirometry but does have bibasilar crackles are pending a chest x-ray because of that reason patient is bit hyponatremic started IV fluids and await the chest x-ray. There is a drop in hemoglobin after surgery to 7.6 although stable after that. 10/26/2020 Patient had a chest x-ray yesterday showed left-sided pleural effusion and infiltrate concerning for infection although patient is already on Zosyn which will be continued. Patient received Lasix twice and had urine output of around 4 L. Patient still becomes hypoxic did obtain a BNP which is a 844, obtaining echocardiogram. 10/27/2020 Patient's echocardiogram did show concentric left ventricular hypertrophy there is no evidence of systolic dysfunction. Patient appears to have volume overload secondary to IV fluids which were discontinued will give another dose of Lasix. 10/27/2020 Patient patient is still the bit hypoxic but my looks much better compared to yesterday. Patient was started on IV Lasix 40 twice a day we will closely monitor hospital day of discharge tomorrow if he for hypoxia continued to improve Constitutional: Denied any fatigue denied any fever. Cardio vascular: denied any chest pain, palpitations Gastrointestinal still has abdominal pain but the getting better passing gas today Pulmonary: Denied any shortness of breath cough Neurologic denied any new focal deficits All inpatient medications were reviewed and appropriate changes in these medications as dictated in the interval history and assessment and plan. Objective - Vital Signs Vital signs: Vital Signs Temp 98 F 10/28/20 09:00 Pulse 72 10/28/20 09:00 Resp 18 10/28/20 09:00 BP 153/88 10/28/20 09:00 Pulse Ox 91 L 10/28/20 09:00 Intake & Output 10/27/20 10/28/20 10/28/20 18:59 06:59 18:59 Intake Total 1260 1170 Output Total 2125 850 Balance -865 320 Intake: Oral 1260 1170 Output: Urine 2125 850 Other: Voiding Method Toilet Toilet - Exam GENERAL: The patient is alert and oriented x3, not in any acute distress. Obese HEENT: Pupils are round and equally reacting to light. EOMI. No scleral icterus. No conjunctival pallor. Normocephalic, atraumatic. No pharyngeal erythema. No thyromegaly. CARDIOVASCULAR: S1 and S2 present. No murmurs, rubs, or gallops. PULMONARY: mild bibasilar crackles which improved compared to yesterday. ABDOMEN: Soft, mildly tender on palpation, mildly distended, normoactive bowel sounds. No palpable organomegaly. Surgical site areas appear to be clean MUSCULOSKELETAL: No joint swelling or deformity. EXTREMITIES: No cyanosis, clubbing, or pedal edema. NEUROLOGICAL: Gross neurological examination did not reveal any focal deficits. - Labs CBC & Chem 7: 10/28/20 06:36 10/28/20 06:36 Labs: Abnormal Lab Results - Last 24 Hours (Table) 10/28/20 10/28/20 Range/Units 06:36 06:36 RBC 3.39 L (3.80-5.40) m/uL Hgb 7.6 L (11.4-16.0) gm/dL Hct 24.5 L (34.0-46.0) % MCV 72.2 L (80.0-100.0) fL MCH 22.5 L (25.0-35.0) pg RDW 16.6 H (11.5-15.5) % Lymphocytes # 0.7 L (1.0-4.8) k/uL Sodium 136 L (137-145) mmol/L Potassium 3.4 L (3.5-5.1) mmol/L Carbon Dioxide 32 H (22-30) mmol/L Glucose 110 H (74-99) mg/dL Alkaline Phosphatase 128 H (38-126) U/L Total Protein 5.8 L (6.3-8.2) g/dL Albumin 3.0 L (3.5-5.0) g/dL Microbiology - Last 24 Hours (Table) 10/22/20 21:23 Blood Culture - Preliminary Blood No Growth after 120 hours Assessment and Plan Plan: -Sepsis: Secondary to acute appendicitis, patient is status post appendectomy and patient is on Zosyn which will be continued. -Shortness of breath: Probably secondary to volume overload from IV fluid resuscitation, patient doesn't have any systolic dysfunction at this time patient will be given another dose of Lasix did -Hyponatremia probably hypervolemic hyponatremia which improved with IV Lasix -Hypokalemia secondary to Lasix which will be replaced -Tachycardia resolved now blood pressure is better controlled continue with metoprolol -Nicotine use: Counseling was provided -Depression: Patient will be resumed on her home medications for this
--- NOTE | 2020-10-28 12:00 | P.PN ---
Subjective Progress Note Date: 10/28/20 Principal diagnosis: Acute appendicitis status post laparoscopic appendectomy Is a very pleasant 40-year-old female patient with a known history of hypertension, anxiety/depression, chronic tobacco dependence. She presented here to the emergency room on 10/22/2020 with complaints of abdominal pain. She was found to have acute appendicitis and had undergone a laparoscopic huma endectomy on 10/23/2020. She had been recovering here in the pediatric unit. She had received over 4 L of fluid resuscitation and began to develop increasing shortness of breath and hypoxemia. Chest x-ray on 10/25/2020 revealed a left pleural effusion. Patchy opacities in the left greater than right mid and lower lungs concerning for infectious/inflammatory process. The plan was for discharge home yesterday however she was requiring oxygen at 2 L/m to maintain O2 saturations in the low 90s. We're consulted today for the same. Presently she is resting fairly comfortably in bed. Awake and alert in no acute distress. She has a dry nonproductive cough. She is afebrile. Hemodynamically stable. Only pulling approximately 1000 ML's on her incentive spirometer. White count 6.8. Hemoglobin 8.0. Sodium 136. Potassium 3.4. Creatinine 0.52. ProBNP 844. Echocardiogram reveals preserved left ventricular systolic function with ejection fraction 55-60%. Blood cultures reveal no growth. She is currently on Zosyn. She received Lasix 40 mg IVP 1 this morning. The patient is seen today 10/28/2020 in follow-up in the pediatric unit. She is currently sitting up in bed. Awake and alert in no acute distress. Breathing a bit easier today compared to yesterday. Maintaining O2 saturations in the low 90s on room air. She's been afebrile. Blood culture reveals no growth. White count 6.2. Hemoglobin 7.6. Sodium 136. Potassium 3.4. Creatinine 0.56. She remains on bronchodilators, diuretics. Antibiotics in the form of Zosyn. As x- ray reveals borderline heart size. Patchy right basilar opacity and left pleural effusion persists. Working well with the incentive spirometer. Objective - Vital Signs Vital signs: Vital Signs Temp 98 F 10/28/20 09:00 Pulse 72 10/28/20 09:00 Resp 18 10/28/20 09:00 BP 153/88 10/28/20 09:00 Pulse Ox 91 L 10/28/20 09:00 Intake & Output 10/27/20 10/28/20 10/28/20 18:59 06:59 18:59 Intake Total 1260 1170 Output Total 2125 850 Balance -865 320 Intake: Oral 1260 1170 Output: Urine 2125 850 Other: Voiding Method Toilet Toilet - Exam GENERAL EXAM: Alert, very pleasant 40-year-old female patient, on room air, fairly comfortable in no apparent distress. HEAD: Normocephalic. EYES: Normal reaction of pupils, equal size. NOSE: Clear with pink turbinates. THROAT: No erythema or exudates. NECK: No masses, no JVD. CHEST: No chest wall deformity. LUNGS: Equal air entry with crackles in the bilateral posterior bases. CVS: S1 and S2 normal with no audible murmur, regular rhythm. ABDOMEN: Tender to palpation. Surgical incisions clean dry well approximated. No hepatosplenomegaly, normal bowel sounds, no guarding or rigidity. SPINE: No scoliosis or deformity SKIN: No rashes CENTRAL NERVOUS SYSTEM: No focal deficits, tone is normal in all 4 extremities. EXTREMITIES: There is no peripheral edema. No clubbing, no cyanosis. Peripheral pulses are intact. - Labs CBC & Chem 7: 10/28/20 06:36 10/28/20 06:36 Labs: Abnormal Lab Results - Last 24 Hours (Table) 10/28/20 10/28/20 Range/Units 06:36 06:36 RBC 3.39 L (3.80-5.40) m/uL Hgb 7.6 L (11.4-16.0) gm/dL Hct 24.5 L (34.0-46.0) % MCV 72.2 L (80.0-100.0) fL MCH 22.5 L (25.0-35.0) pg RDW 16.6 H (11.5-15.5) % Lymphocytes # 0.7 L (1.0-4.8) k/uL Sodium 136 L (137-145) mmol/L Potassium 3.4 L (3.5-5.1) mmol/L Carbon Dioxide 32 H (22-30) mmol/L Glucose 110 H (74-99) mg/dL Alkaline Phosphatase 128 H (38-126) U/L Total Protein 5.8 L (6.3-8.2) g/dL Albumin 3.0 L (3.5-5.0) g/dL Microbiology - Last 24 Hours (Table) 10/22/20 21:23 Blood Culture - Preliminary Blood No Growth after 120 hours Assessment and Plan Assessment: 1 Acute appendicitis status post laparoscopic appendectomy 2 Fluid volume overload secondary to fluid resuscitation with increased dyspnea and hypoxemia 3 Atelectasis/infiltrates due to hypoventilation secondary to abdominal discomfort 4 COPD suspected with ongoing tobacco dependence. 5 Chronic tobacco dependence 6 History of hypertension Plan: The patient was seen and evaluated by Dr. Barraza Chest x-ray reviewed, labs reviewed Lasix 40 mg IVP every 12 hours Encouraged increased use the incentive spirometer and cough and deep breathing exercises Continue bronchodilators, Zosyn Increase her activity as tolerated Probable discharge in the a.m. We will continue to follow and make further recommendations based on her clinical status I, the cosigning physician, performed a history & physical examination of the patient. Lungs sounds with faint crackles in the bilateral posterior bases, diminished. Maintaining good O2 saturations in the 90s on room air. I discussed the assessment and plan of care with my nurse practitioner, Porsha Perez. I attest to the above note as dictated by her.
--- NOTE | 2020-10-28 17:47 | PN ---
PROGRESS NOTE DATE OF SERVICE: 10/28/2020 REASON FOR FOLLOWUP: Acute gangrenous appendicitis. INTERVAL HISTORY: The patient is currently afebrile. Patient is feeling slightly better. Patient abdominal pain is currently controlled. No chest pain. No shortness of breath or cough. PHYSICAL EXAMINATION: Blood pressure 153/88 with a pulse of 72, temperature 98. She is 91% on room air. General description: The patient is a middle-aged female lying in bed in no distress. Respiratory system: Unlabored breathing. Clear to auscultation anteriorly. Heart S1, S2. Regular rate and rhythm. ABDOMEN: Soft, no tenderness. LABS: Hemoglobin 7.4, white count 6.2, BUN of 7, creatinine 0.56. Blood culture negative. DIAGNOSTIC IMPRESSION AND PLAN: Patient with acute gangrenous appendicitis and possible microperforation. The patient is currently covered with Zosyn that will be continued for now and we will monitor clinical course closely. Continue supportive care. MMEVERL / GASTONN: [id number] /
[2020-10-28] MEDS ORDERED: SENNOSIDES 8.6 MG TAB PO PRN (18:39)
[2020-10-28] MEDS: VENLAFAXINE HCL ER 150 MG CAP PO SCH (20:59)
[2020-10-29] MEDS: HYDROcodone/APAP 5-325MG 1 EACH TAB PO PRN ×3 (00:14→12:40)
[2020-10-29] MEDS: ONDANSETRON 4 MG/2 ML VIAL IVP PRN (00:55)
[2020-10-29] MEDS: LACTATED RINGERS 1,000 ML IV SCH (00:56)
[2020-10-29] MEDS: MORPHINE SULFATE 4 MG/ML SYRINGE IV PRN (02:05)
[2020-10-29 02:10] VITALS: RESP 18
[2020-10-29] MEDS: PIPERACILLIN-TAZOBACTAM 3.375 GM in SODIUM CHLORIDE 0.9% 100 ML IVPB SCH (06:14)
[2020-10-29] MEDS: PANTOPRAZOLE 40 MG TABLET PO SCH (06:16)
[2020-10-29] MEDS: IPRATROPIUM-ALBUTEROL 3 ML NEB INHALATION SCH ×3 (07:20→11:02)
[2020-10-29] MEDS: METOPROLOL TARTRATE 25 MG TAB PO SCH (08:08)
[2020-10-29] MEDS: ENOXAPARIN 40 MG/0.4 ML SYRINGE SQ SCH (08:08)
[2020-10-29 08:21] VITALS: BP 146/96; TEMP 97.7
[2020-10-29] MEDS: FUROSEMIDE 10 MG/ML 4 ML VIAL IV SCH (08:22)
[2020-10-29 13:24] VITALS: BMI 35.1
--- NOTE | 2020-10-29 14:08 | P.DS ---
Providers Date of admission: 10/22/20 21:11 Expected date of discharge: 10/29/20 Attending physician: Chino Argueta Consults: 10/23/20 10:44 Consult Physician Routine Consulting Provider: Fidencio Richardson Consult Reason/Comments: Medical management Do you want consulting provider notified?: Yes Consult Physician Routine Consulting Provider: Caity Stahl Consult Reason/Comments: Acute appendicitis Do you want consulting provider notified?: Yes 10/27/20 09:12 Consult Physician Routine Consulting Provider: Jaylan Barraza Consult Reason/Comments: COPD exacerbation Do you want consulting provider notified?: Yes Primary care physician: Kelsie Matos Hospital Course: Is a 40-year-old female who is in the hospital with acute appendicitis with sepsis. Patient prolonged hospital course. Please see hospital chart for details. Procedures: Laparoscopic appendectomy Patient Condition at Discharge: Good Plan - Discharge Summary Discharge Rx Participant: Yes New Discharge Prescriptions: New Carvedilol [Coreg] 3.125 mg PO BID 30 Days #60 tablet Amoxicillin/Potassium Clav [Augmentin 875-125 Tablet] 1 tab PO BID 7 Days #14 tab Continue Ibuprofen [Motrin Ib] 400 mg PO Q6H PRN PRN Reason: Pain Venlafaxine HCl [Effexor XR] 150 mg PO HS cloNIDine HCL [Catapres] 0.1 mg PO BID PRN PRN Reason: Migraine Headache Discharge Medication List Ibuprofen [Motrin Ib] 400 mg PO Q6H PRN 10/28/18 [History] Venlafaxine HCl [Effexor XR] 150 mg PO HS 10/22/20 [History] cloNIDine HCL [Catapres] 0.1 mg PO BID PRN 10/22/20 [History] Amoxicillin/Potassium Clav [Augmentin 875-125 Tablet] 1 tab PO BID 7 Days #14 tab 10/29/20 [Rx] Carvedilol [Coreg] 3.125 mg PO BID 30 Days #60 tablet 10/29/20 [Rx] Follow up Appointment(s)/Referral(s): [facility], [NON-STAFF] - 1-2 Days Kelsie Matos MD [Primary Care Provider] - 10/31/20 1:15 pm Chino Argueta MD [STAFF PHYSICIAN] - 11/06/20 3:00 pm (Thursday) Patient Instructions/Handouts: *Surgery [facility] - Scopalamine Patch Instructions, Laparoscopic Appendectomy (DC) Activity/Diet/Wound Care/Special Instructions: No lifting over 10 pounds until cleared by surgeon Activity Limited until follow-up Follow-up with primary care provider upon discharge Monitor blood pressure and keep a diary for primary care follow-up Continue with antibiotics until finished Continue with incentive spirometer at least 10 times every hour while awake Discharge Disposition: HOME SELF-CARE
--- NOTE | 2020-10-29 14:16 | P.PN ---
Subjective Progress Note Date: 10/29/20 Very pleasant 40-year-old female came in with complaints of right lower quadrant abdominal pain found to have appendicitis emergently taken to patient the had appendectomy week postoperatively patient today still having some pain but feeling much better. Patient postoperatively does have bowel sounds. Patient is bit tachycardic use he usually uses clonidine for blood pressure twice a day. 10/24/2020 Patient is seen in follow-up status post appendectomy no acute overnight issues. Positive bowel sounds noted although patient reports no gas and no bowel movements at this time. Patient is voiding with no dysuria retention noted. Has been up to the bathroom slowly with no difficulties. Incentive spirometer at the bedside and instructed the patient to continue using at least 10 times every hour while awake. Patient is currently on clear liquid diet and tolerating with no reports of nausea or vomiting noted. 10/25/2020 Patient the abdomen is distended but passing gas now no bowel movements yet. Patient does have bowel sounds today. Patient is doing insulin spirometry but does have bibasilar crackles are pending a chest x-ray because of that reason patient is bit hyponatremic started IV fluids and await the chest x-ray. There is a drop in hemoglobin after surgery to 7.6 although stable after that. 10/26/2020 Patient had a chest x-ray yesterday showed left-sided pleural effusion and infiltrate concerning for infection although patient is already on Zosyn which will be continued. Patient received Lasix twice and had urine output of around 4 L. Patient still becomes hypoxic did obtain a BNP which is a 844, obtaining echocardiogram. 10/27/2020 Patient's echocardiogram did show concentric left ventricular hypertrophy there is no evidence of systolic dysfunction. Patient appears to have volume overload secondary to IV fluids which were discontinued will give another dose of Lasix. 10/27/2020 Patient patient is still the bit hypoxic but my looks much better compared to yesterday. Patient was started on IV Lasix 40 twice a day we will closely monitor hospital day of discharge tomorrow if he for hypoxia continued to improve Constitutional: Denied any fatigue denied any fever. Cardio vascular: denied any chest pain, palpitations Gastrointestinal still has abdominal pain but the getting better passing gas today Pulmonary: Denied any shortness of breath cough Neurologic denied any new focal deficits All inpatient medications were reviewed and appropriate changes in these medications as dictated in the interval history and assessment and plan. Very pleasant 40-year-old female came in with complaints of right lower quadrant abdominal pain found to have appendicitis emergently taken to patient the had appendectomy week postoperatively patient today still having some pain but feeling much better. Patient postoperatively does have bowel sounds. Patient is bit tachycardic use he usually uses clonidine for blood pressure twice a day. 10/24/2020 Patient is seen in follow-up status post appendectomy no acute overnight issues. Positive bowel sounds noted although patient reports no gas and no bowel movements at this time. Patient is voiding with no dysuria retention noted. Has been up to the bathroom slowly with no difficulties. Incentive spirometer at the bedside and instructed the patient to continue using at least 10 times every hour while awake. Patient is currently on clear liquid diet and tolerating with no reports of nausea or vomiting noted. 10/25/2020 Patient the abdomen is distended but passing gas now no bowel movements yet. Patient does have bowel sounds today. Patient is doing insulin spirometry but does have bibasilar crackles are pending a chest x-ray because of that reason patient is bit hyponatremic started IV fluids and await the chest x-ray. There is a drop in hemoglobin after surgery to 7.6 although stable after that. 10/26/2020 Patient had a chest x-ray yesterday showed left-sided pleural effusion and inf iltrate concerning for infection although patient is already on Zosyn which will be continued. Patient received Lasix twice and had urine output of around 4 L. Patient still becomes hypoxic did obtain a BNP which is a 844, obtaining echocardiogram. 10/27/2020 Patient's echocardiogram did show concentric left ventricular hypertrophy there is no evidence of systolic dysfunction. Patient appears to have volume overload secondary to IV fluids which were discontinued will give another dose of Lasix. 10/28/2020 Patient patient is still the bit hypoxic but my looks much better compared to yesterday. Patient was started on IV Lasix 40 twice a day we will closely monitor hospital day of discharge tomorrow if he for hypoxia continued to improve 10/29/2020 Patient is seen in follow-up and is currently 95% on room air and feels much better. Patient was given a few doses of Lasix and has not received any today. Patient is tolerating diet with reported bowel movement yesterday. Patient ins tructed to continue using incentive spirometer at least 10 times every hour while awake even in the outpatient setting. Patient was maintained on metoprolol 25 mg twice daily and will switch to Coreg 3.125 mg twice daily upon discharge. She does take Catapres as instructed by her primary care provider as needed at the onset of migraine headaches. Patient to continue as needed and discuss with her primary care provider about the medication adjustments. Constitutional: Denied any fatigue denied any fever. Cardio vascular: denied any chest pain, palpitations Gastrointestinal: No reports of nausea, vomiting, or diarrhea Pulmonary: Denied any shortness of breath cough Neurologic denied any new focal deficits All inpatient medications were reviewed and appropriate changes in these medications as dictated in the interval history and assessment and plan. Objective - Vital Signs Vital signs: Vital Signs Temp 97.7 F 10/29/20 08:00 Pulse 86 10/29/20 08:00 Resp 18 10/29/20 08:00 BP 146/96 10/29/20 08:00 Pulse Ox 95 10/29/20 08:00 Intake & Output 10/28/20 10/29/20 10/29/20 18:59 06:59 18:59 Intake Total 1000 Output Total 3200 3 Balance -2200 -3 Intake: Oral 1000 Output: Urine 3200 3 Other: # Voids 1 # Bowel Movements 1 - Exam GENERAL: The patient is alert and oriented x3, not in any acute distress. Obese HEENT: Pupils are round and equally reacting to light. EOMI. No scleral icterus. No conjunctival pallor. Normocephalic, atraumatic. No pharyngeal erythema. No thyromegaly. CARDIOVASCULAR: S1 and S2 present. No murmurs, rubs, or gallops. PULMONARY: Diminished breath sounds bilaterally with no wheezing or rhonchi noted ABDOMEN: Soft, nondistended, nontender, normoactive bowel sounds. No palpable organomegaly. MUSCULOSKELETAL: No joint swelling or deformity. EXTREMITIES: No cyanosis, clubbing, or pedal edema. NEUROLOGICAL: Gross neurological examination did not reveal any focal deficits. - Labs CBC & Chem 7: 10/28/20 06:36 10/28/20 11:16 Labs: Microbiology - Last 24 Hours (Table) 10/22/20 21:23 Blood Culture - Final Blood No Growth after 144 hours Assessment and Plan Assessment: -Sepsis: Secondary to acute appendicitis, patient is status post appendectomy an d patient is on Zosyn which will be continued. -Shortness of breath: Probably secondary to volume overload from IV fluid resuscitation, improved -Hyponatremia probably hypervolemic hyponatremia which improved with IV Lasix -Hypokalemia secondary to Lasix which will be replaced, proved current potassium is 3.8 -Tachycardia resolved now blood pressure is better controlled, will switch to Coreg 3.125 mg twice daily -Nicotine use: Counseling was provided -Depression: Patient will be resumed on her home medications for this Plan: Continue with current medications. Metoprolol discontinued and we'll transition to Coreg 3.125 mg twice daily and instructed to follow-up with primary care provider upon discharge. Also instructed the patient to continue with incentive spirometer use at least 10 times every hour while awake even in the outpatient setting. Patient will follow-up she states once discharged. Will continue to follow along with surgery during hospitalization. States she is being d ischarged today.
[2020-10-29 14:46] VITALS: PULSE 82
--- NOTE | 2020-10-29 15:24 | PN ---
PROGRESS NOTE DATE OF SERVICE: 10/29/2020 REASON FOR FOLLOWUP: Acute gangrenous appendicitis. INTERVAL HISTORY: The patient is currently afebrile. Patient is feeling better. Patient's abdominal pain is currently controlled. Denies having any chest pain or shortness of breath or cough. No nausea or vomiting. No diarrhea. PHYSICAL EXAMINATION: Blood pressure 146/96, pulse of 86, temperature 97.7. She is 95% on room air. General description is a middle-aged female lying in bed in no distress. RESPIRATORY SYSTEM: Unlabored breathing. Clear to auscultation anteriorly. HEART: S1, S2. Regular rate and rhythm. ABDOMEN: Soft, no tenderness. LABS: No new labs have been obtained today. DIAGNOSTIC IMPRESSION AND PLAN: Patient with acute gangrenous appendicitis with concern for possible microperforation. Patient overall improvement on Zosyn, will finish therapy with oral Augmentin prescription sent to the pharmacy. Continue with supportive care. MMODL / IJN: [id number] /
== END 2020-10-29 15:07 | disposition home or self-care (01) | DRG 853 ==
LOC: EC 17:58 → 6PED 21:11 → 6NMEDSUR 10-24 03:11 → 6PED 10-24 03:18
PROVIDERS: ADMIT Surgery; ATTEND Surgery
PROC: 0DTJ4ZZ Resection of Appendix, Percutaneous Endoscopic Approach (ICD-10-PCS; principal; 2020-10-23 07:30)
DX: A41.9 Sepsis, unspecified organism (principal); K35.32 Acute appendicitis with perforation, localized peritonitis, and gangrene, without abscess; J98.11 Atelectasis; E87.1 Hypo-osmolality and hyponatremia; J44.1 Chronic obstructive pulmonary disease with (acute) exacerbation; J90 Pleural effusion, not elsewhere classified; E66.01 Morbid (severe) obesity due to excess calories; Z20.828 Contact with and (suspected) exposure to other viral communicable diseases; E87.6 Hypokalemia; E87.70 Fluid overload, unspecified; F17.200 Nicotine dependence, unspecified, uncomplicated; K38.1 Appendicular concretions; T50.1X5A Adverse effect of loop [high-ceiling] diuretics, initial encounter; I11.9 Hypertensive heart disease without heart failure; F32.9 Major depressive disorder, single episode, unspecified; F41.0 Panic disorder [episodic paroxysmal anxiety]; Z82.49 Family history of ischemic heart disease and other diseases of the circulatory system; Z79.899 Other long term (current) drug therapy; Z68.35 Body mass index [BMI] 35.0-35.9, adult
CPT/HCPCS: 36415; 71045; 74177; 80048; 80053; 81003; 81025; 82150; 83605; 83690; 83880; 84100; 84132; 84703; 85025; 87040; 87635; 88304; 93306; 96361; 96365; 96375; 96376; 99285

== ENCOUNTER → 2022-01-03 | Outpatient (CLI) | payer OTHER ==
--- NOTE | 2022-01-03 18:57 | XR ---
EXAMINATION TYPE: XR foot limited LT DATE OF EXAM: 01/03/2022 COMPARISON: None available INDICATION: 41-year-old female, pain TECHNIQUE: 2 views of the left foot FINDINGS: No definite acute fracture line identified. No significant bony or articular abnormality is seen. IMPRESSION: As above
== END | disposition home or self-care (01) ==
LOC: RADXRMAIN 12:34
PROVIDERS: ATTEND Internal Medicine
DX: M79.672 Pain in left foot (principal)

== ENCOUNTER 2023-04-29 13:08 | Emergency (ER) | payer OTHER ==
[2023-04-29] MEDS ORDERED: SODIUM CHLORIDE 0.9% 1,000 ML IV ONE (13:16)
[2023-04-29 13:31] LABS: Anisocytosis Slight; Basophils % (A) 1 %; Eosinophils % (A) 1 %; HGB 11.4 gm/dL (11.4-16.0); Lymphocytes # (A) 0.8 k/uL (1.0-4.8); Lymphocytes % (A) 24 %; MCHC 32.6 g/dL (31.0-37.0); MCV 79.8 fL (80.0-100.0); Monocytes # (A) 0.3 k/uL (0-1.0); Monocytes % (A) 10 %; Neutrophils # (A) 2.1 k/uL (1.3-7.7); Neutrophils % (A) 61 %; Platelet Count 280 k/uL (150-450); RBC 4.38 m/uL (3.80-5.40); RDW 16.2 % (11.5-15.5); WBC 3.4 k/uL (3.8-10.6)
[2023-04-29 13:42] LABS: Partial Thromboplastin Time 22.1 sec (22.0-30.0); Prothrombin Time 10.2 sec (9.0-12.0)
[2023-04-29 13:43] LABS: ALT 49 U/L (4-34); AST 40 U/L (14-36); Acetaminophen <10.0 ug/mL; African American GFR (CKD) >90 (>60 ml/min/1.73 sqM); Albumin 3.7 g/dL (3.5-5.0); Alkaline Phosphatase 123 U/L (38-126); Anion Gap 9 mmol/L; Blood Urea Nitrogen 15 mg/dL (7-17); Calcium 8.2 mg/dL (8.4-10.2); Carbon Dioxide 24 mmol/L (22-30); Chloride 108 mmol/L (98-107); Glucose 103 mg/dL (74-99); Non-African American GFR(CKD) 87 (>60 ml/min/1.73 sqM); Potassium 3.4 mmol/L (3.5-5.1); Salicylate <1.0 mg/dL; Sodium 141 mmol/L (137-145); Total Bilirubin 0.1 mg/dL (0.2-1.3); Total Protein 6.3 g/dL (6.3-8.2)
--- NOTE | 2023-04-29 13:55 | ED ---
General Adult HPI - General Chief complaint: Altered Mental Status Stated complaint: syncope, ETOH Time Seen by Provider: 04/29/23 13:11 Source: patient, EMS, RN notes reviewed, old records reviewed Mode of arrival: EMS Limitations: altered mental status - History of Present Illness Initial comments: 43-year-old female presenting with altered level consciousness, suspected alcohol. Patient was found by paramedics with empty bottles of alcohol. There is also prescription for Topamax. The EMS reports that she had a disagreement with her boyfriend and resulted in excessive alcohol consumption. Paramedics report that she was talking during transport stable vitals, normal blood sugar. - Related Data Home Medications Medication Instructions Recorded Confirmed Venlafaxine HCl [Effexor XR] 150 mg PO HS 10/22/20 04/29/23 Topiramate [Topamax] 100 mg PO TID 04/29/23 04/29/23 Allergies Allergy/AdvReac Type Severity Reaction Status Date / Time No Known Allergies Allergy Verified 04/29/23 13:57 Review of Systems ROS Statement: Those systems with pertinent positive or pertinent negative responses have been documented in the HPI. ROS Other: All systems not noted in ROS Statement are negative. Past Medical History Past Medical History: Hypertension History of Any Multi-Drug Resistant Organisms: None Reported Past Surgical History: No Surgical Hx Reported Past Anesthesia/Blood Transfusion Reactions: No Reported Reaction Past Psychological History: Anxiety, Depression, Panic Disorder Smoking Status: Current every day smoker Past Alcohol Use History: None Reported Past Drug Use History: None Reported - Past Family History Mother Family Medical History: Hypertension Father Family Medical History: Coronary Artery Disease (CAD) General Exam Limitations: altered mental status General appearance: alert, in no apparent distress Head exam: Present: atraumatic, normocephalic Eye exam: Present: normal appearance, PERRL ENT exam: Present: mucous membranes dry Neck exam: Present: normal inspection. Absent: tenderness, meningismus Respiratory exam: Present: normal lung sounds bilaterally, respiratory distress Cardiovascular Exam: Present: normal rhythm, tachycardia GI/Abdominal exam: Present: soft. Absent: distended, tenderness Extremities exam: Present: normal inspection, normal capillary refill. Absent: pedal edema, joint swelling Neurological exam: Present: alert, CN II-XII intact. Absent: oriented X3, motor sensory deficit ( does seem to be moving all extremities symmetrically but complete neuro exam is not possible due to altered level consciousness) Skin exam: Present: warm, dry, intact Course Vital Signs 04/29/23 04/29/23 04/29/23 13:16 15:30 18:45 Pulse Rate 124 H 99 110 H Respiratory 18 20 20 Rate Blood Pressure 141/102 144/103 135/82 O2 Sat by Pulse 100 99 100 Oximetry 04/30/23 01:15 Pulse Rate 90 Respiratory 20 Rate Blood Pressure 130/75 O2 Sat by Pulse 100 Oximetry - Reevaluation(s) Reevaluation #1: 04/29/23 15:19 She reevaluated, return to baseline. She does admit increased depression and suicidal ideation. She has a relatively normal lab testing with presence of UTI and alcohol 278. She will be transitioned into a psychiatric patient awaiting sobriety for EPS evaluation Medical Decision Making - Medical Decision Making Was pt. sent in by a medical professional or institution (, PA, [employer], urgent care, hospital, or long term...) When possible be specific @ -[No] Did you speak to anyone other than the patient for history (EMS, parent, family, police, friend...)? What history was obtained from this source @ -[Paramedics Did you review nursing and triage notes (agree or disagree)? Why? @ -[I reviewed and agree with nursing and triage notes] Were old charts reviewed (outside hosp., previous admission, EMS record, old EKG, old radiological studies, urgent care reports/EKG's, long term records)? Report findings @ -[No old charts were reviewed] Differential Diagnosis (chest pain, altered mental status, abdominal pain women, abdominal pain men, vaginal bleeding, weakness, fever, dyspnea, syncope, headache, dizziness, GI bleed, back pain, seizure, CVA, palpatations, mental health, musculoskeletal)? @ -[Differential Mental Health Depression, anxiety, bipolar, psychosis, schizophrenia, borderline personality, situational depression, adjustment disorder, behavioral disorder, brain tumor, malingering, substance abuse, encephalopathy, medication reaction, dementia, hypothyroidism, degenerative neurologic disorder, lupus.... This is not meant to be all-inclusive list EKG interpreted by me (3pts min.). @Sinus rhythm rate of 99, RI interval 185, QRS duration 95, QTC 385, no ST segment changes. X-rays interpreted by me (1pt min.). @ -[None done] CT interpreted by me (1pt min.). @ -[No intracranial hemorrhage or mass effect] U/S interpreted by me (1pt. min.). @ -[None done] What testing was considered but not performed or refused? (CT, X-rays, U/S, labs)? Why? @ -[None] What meds were considered but not given or refused? Why? @ -[None] Did you discuss the management of the patient with other professionals (professionals i.e. , PA, [employer], lab, RT, psych nurse, social work nurse, solution designer, teacher, parachute officer, wrapper caser)? Give summary @ -[No] Was smoking cessation discussed for >3mins.? @ -[No] Was critical care preformed (if so, how long)? @ -[No] Were there social determinants of health that impacted care today? How? (Homelessness, low income, unemployed, alcoholism, drug addiction, transportation, low edu. Level, literacy, decrease access to med. care, custodial, rehab)? @ -[No] Was there de-escalation of care discussed even if they declined (Discuss DNR or withdrawal of care, Hospice)? DNR status @ -[No] What co-morbidities impacted this encounter? (DM, HTN, Smoking, COPD, CAD, Cancer, CVA, ARF, Chemo, Hep., AIDS, mental health diagnosis, sleep apnea, morbid obesity)? @ -[None] Was patient admitted / discharged? Hospital course, mention meds given and route, prescriptions, significant lab abnormalities, going to OR and other pertinent info. @ -[Patient medically cleared, will require EPS evaluation. Awaiting sobriety. Patient care signed out at shift change. Review the medical record it appears this patient was evaluated by EPS and cleared for discharge. - Lab Data Result diagrams: 04/29/23 13:22 04/29/23 13:22 Lab Results 04/29/23 04/29/23 04/29/23 Range/Units 13:22 13:22 13:22 WBC 3.4 L (3.8-10.6) k/uL RBC 4.38 (3.80-5.40) m/uL Hgb 11.4 (11.4-16.0) gm/dL Hct 35.0 (34.0-46.0) % MCV 79.8 L (80.0-100.0) fL MCH 26.0 (25.0-35.0) pg MCHC 32.6 (31.0-37.0) g/dL RDW 16.2 H (11.5-15.5) % Plt Count 280 (150-450) k/uL MPV 7.0 Neutrophils % 61 % Lymphocytes % 24 % Monocytes % 10 % Eosinophils % 1 % Basophils % 1 % Neutrophils # 2.1 (1.3-7.7) k/uL Lymphocytes # 0.8 L (1.0-4.8) k/uL Monocytes # 0.3 (0-1.0) k/uL Eosinophils # 0.0 (0-0.7) k/uL Basophils # 0.0 (0-0.2) k/uL Anisocytosis Slight PT 10.2 (9.0-12.0) sec INR 1.0 (<1.2) APTT 22.1 (22.0-30.0) sec Sodium (137-145) mmol/L Potassium (3.5-5.1) mmol/L Chloride (98-107) mmol/L Carbon Dioxide (22-30) mmol/L Anion Gap mmol/L BUN (7-17) mg/dL Creatinine (0.52-1.04) mg/dL Est GFR (CKD-EPI)AfAm (>60 ml/min/1.73 sqM) Est GFR (CKD-EPI)NonAf (>60 ml/min/1.73 sqM) Glucose (74-99) mg/dL Calcium (8.4-10.2) mg/dL Total Bilirubin (0.2-1.3) mg/dL AST (14-36) U/L ALT (4-34) U/L Alkaline Phosphatase (38-126) U/L Ammonia (<30) umol/L Troponin I (0.000-0.034) ng/mL Total Protein (6.3-8.2) g/dL Albumin (3.5-5.0) g/dL HCG, Quant mIU/mL Urine Color Light Yellow Urine Appearance Cloudy H (Clear) Urine pH 7.5 (5.0-8.0) Ur Specific [place] 1.006 (1.001-1.035) Urine Protein Negative (Negative) Urine Glucose (UA) Negative (Negative) Urine Ketones Negative (Negative) Urine Blood Negative (Negative) Urine Nitrite Positive H (Negative) Urine Bilirubin Negative (Negative) Urine Urobilinogen <2.0 (<2.0) mg/dL Ur Leukocyte Esterase Large H (Negative) Urine RBC 1 (0-5) /hpf Urine WBC 35 H (0-5) /hpf Ur Squamous Epith Cells <1 (0-4) /hpf Amorphous Sediment Rare H (None) /hpf Urine Bacteria Rare H (None) /hpf Salicylates mg/dL Urine Opiates Screen Not Detected (NotDetected) Ur Oxycodone Screen Not Detected (NotDetected) Urine Methadone Screen Not Detected (NotDetected) Ur Propoxyphene Screen Not Detected (NotDetected) Acetaminophen ug/mL Ur Barbiturates Screen Not Detected (NotDetected) U Tricyclic Antidepress Not Detected (NotDetected) Ur Phencyclidine Scrn Not Detected (NotDetected) Ur Amphetamines Screen Not Detected (NotDetected) U Methamphetamines Scrn Not Detected (NotDetected) U Benzodiazepines Scrn Not Detected (NotDetected) Urine Cocaine Screen Not Detected (NotDetected) U Marijuana (THC) Screen Not Detected (NotDetected) Serum Alcohol mg/dL 04/29/23 04/29/23 04/29/23 Range/Units 13:22 13:22 13:22 WBC (3.8-10.6) k/uL RBC (3.80-5.40) m/uL Hgb (11.4-16.0) gm/dL Hct (34.0-46.0) % MCV (80.0-100.0) fL MCH (25.0-35.0) pg MCHC (31.0-37.0) g/dL RDW (11.5-15.5) % Plt Count (150-450) k/uL MPV Neutrophils % % Lymphocytes % % Monocytes % % Eosinophils % % Basophils % % Neutrophils # (1.3-7.7) k/uL Lymphocytes # (1.0-4.8) k/uL Monocytes # (0-1.0) k/uL Eosinophils # (0-0.7) k/uL Basophils # (0-0.2) k/uL Anisocytosis PT (9.0-12.0) sec INR (<1.2) APTT (22.0-30.0) sec Sodium 141 (137-145) mmol/L Potassium 3.4 L (3.5-5.1) mmol/L Chloride 108 H (98-107) mmol/L Carbon Dioxide 24 (22-30) mmol/L Anion Gap 9 mmol/L BUN 15 (7-17) mg/dL Creatinine 0.82 (0.52-1.04) mg/dL Est GFR (CKD-EPI)AfAm >90 (>60 ml/min/1.73 sqM) Est GFR (CKD-EPI)NonAf 87 (>60 ml/min/1.73 sqM) Glucose 103 H (74-99) mg/dL Calcium 8.2 L (8.4-10.2) mg/dL Total Bilirubin 0.1 L (0.2-1.3) mg/dL AST 40 H (14-36) U/L ALT 49 H (4-34) U/L Alkaline Phosphatase 123 (38-126) U/L Ammonia <9 (<30) umol/L Troponin I <0.012 (0.000-0.034) ng/mL Total Protein 6.3 (6.3-8.2) g/dL Albumin 3.7 (3.5-5.0) g/dL HCG, Quant <2.4 mIU/mL Urine Color Urine Appearance (Clear) Urine pH (5.0-8.0) Ur Specific [place] (1.001-1.035) Urine Protein (Negative) Urine Glucose (UA) (Negative) Urine Ketones (Negative) Urine Blood (Negative) Urine Nitrite (Negative) Urine Bilirubin (Negative) Urine Urobilinogen (<2.0) mg/dL Ur Leukocyte Esterase (Negative) Urine RBC (0-5) /hpf Urine WBC (0-5) /hpf Ur Squamous Epith Cells (0-4) /hpf Amorphous Sediment (None) /hpf Urine Bacteria (None) /hpf Salicylates <1.0 mg/dL Urine Opiates Screen (NotDetected) Ur Oxycodone Screen (NotDetected) Urine Methadone Screen (NotDetected) Ur Propoxyphene Screen (NotDetected) Acetaminophen <10.0 ug/mL Ur Barbiturates Screen (NotDetected) U Tricyclic Antidepress (NotDetected) Ur Phencyclidine Scrn (NotDetected) Ur Amphetamines Screen (NotDetected) U Methamphetamines Scrn (NotDetected) U Benzodiazepines Scrn (NotDetected) Urine Cocaine Screen (NotDetected) U Marijuana (THC) Screen (NotDetected) Serum Alcohol 278 H* mg/dL Disposition Clinical Impression: Depression Disposition: HOME SELF-CARE Condition: Fair Is patient prescribed a controlled substance at d/c from ED?: No Referrals: Dylan Weldon MD [REFERRING] - 1-2 days
[2023-04-29 13:57] LABS: Alcohol 278 mg/dL
[2023-04-29 13:59] LABS: HCG,Quantitative Serum <2.4 mIU/mL
[2023-04-29 14:44] LABS: Amorphous Sediment,Urine Rare /hpf; Appearance,Urine Cloudy (Clear); Bacteria,Urine Rare /hpf; Bilirubin,Urine Negative (Negative); Blood,Urine Negative (Negative); Color,Urine Light Yellow; Glucose,Urine (UA) Negative (Negative); Ketones,Urine Negative (Negative); Leukocyte Esterase,Urine Large (Negative); Nitrite,Urine Positive (Negative); PH, Urine 7.5 (5.0-8.0); Protein,Urine Negative (Negative); RBC,Urine 1 /hpf (0-5); Specific Gravity,Urine 1.006 (1.001-1.035); Squamous Epithelial Cell,Urine <1 /hpf (0-4); Urobilinogen,Urine <2.0 mg/dL (<2.0); WBC,Urine 35 /hpf (0-5)
--- NOTE | 2023-04-29 14:47 | CT ---
EXAMINATION TYPE: CT brain wo con CT DLP: 1143.4 mGycm, Automated exposure control for dose reduction was used. DATE OF EXAM: 04/29/2023 2:43 PM COMPARISON: None. CLINICAL INDICATION:Female, 43 years old with history of Altered mental status, TECHNIQUE: Brain: Axial CT images of the brain were obtained with coronal and sagittal reformats created and rev iewed. Contrast used: None. Oral contrast used: None. FINDINGS: Brain: Extra-axial spaces: No abnormal extra-axial fluid collections. Ventricular system: Within normal limits Cerebral parenchyma: No acute intraparenchymal hemorrhage or mass effect. The dumont-white junction is well differentiated. Cerebellum: Unremarkable. Mass effect: No evidence of midline shift. Intracranial vasculature: unremarkable Soft tissues: Normal. Calvarium/osseous structures: No depressed skull fracture. Paranasal sinuses and mastoid air cells: Mild scattered paranasal sinus disease. Visualized orbits: Orbital contents are intact. IMPRESSION: No acute intracranial process.
[2023-04-29 14:51] LABS: Amphetamine Screen,Urine Not Detected (NotDetected); Barbiturate Screen,Urine Not Detected (NotDetected); Benzodiazepines Screen,Urine Not Detected (NotDetected); Cocaine Screen,Urine Not Detected (NotDetected); Methadone Screen, Urine Not Detected (NotDetected); Opiate Screen,Urine Not Detected (NotDetected); Oxycodone Screen, Urine Not Detected (NotDetected); Phencyclidine Screen,Urine Not Detected (NotDetected); Tricyclic Antidepressant,Urine Not Detected (NotDetected); Urn Cannabinoid Scrn Not Detected (NotDetected)
[2023-04-29] MEDS ORDERED: CEPHALEXIN 500 MG CAP PO STA (15:18)
[2023-04-29 16:08] VITALS: RESP 20
[2023-04-29] MEDS ORDERED: PHENAZOPYRIDINE 100 MG TAB PO STA (18:48)
[2023-04-29] MEDS ORDERED: IBUPROFEN 600 MG TAB PO STA (19:01)
[2023-04-29] MEDS ORDERED: CEPHALEXIN 500 MG CAP PO SCH (21:00)
[2023-04-30 01:39] VITALS: BP 130/75; PULSE 90
== END 2023-04-30 01:39 | disposition home or self-care (01) ==
LOC: EC 13:08
DX: F32.A Depression, unspecified (principal); I10 Essential (primary) hypertension; F17.200 Nicotine dependence, unspecified, uncomplicated; Z79.899 Other long term (current) drug therapy
CPT/HCPCS: 36415; 93005; 80053; 82140; 84484; 85025; 85610; 85730; 81001; 84702; 80306; 80143; 80179; 70450; 99285; 96360; G0480; 80320